=== PATIENT | female | born 1945 | race Two or more races ===

== ENCOUNTER → 2016-09-26 | Outpatient (REF) | payer MEDICAID ==
[~2016-09-26] MED LIST: HYDR25TA6; K-TA10TA; LABE100T2; LABE200T; VICO5TAB
[2016-09-26 13:10] LABS: MEAN CORPUSCULAR HEMOGLOBIN 26.5 pg (27.0-33.0); MEAN CORPUSCULAR HGB CONC 32.2 g/dl (32.0-36.5); MEAN CORPUSCULAR VOLUME 82.4 fl (80.0-96.0); RED CELL DISTRIBUTION WIDTH 13.8 % (11.5-14.5); WHITE BLOOD COUNT 6.5 K/mm3 (4.0-10.0)
== END ==
LOC: M SFHCPLAZ 10:58
PROVIDERS: ATTEND Nurse Practitioner Family
DX: E11.9 Type 2 diabetes mellitus without complications (principal); I10 Essential (primary) hypertension; E03.9 Hypothyroidism, unspecified; E78.5 Hyperlipidemia, unspecified; E55.9 Vitamin D deficiency, unspecified

== ENCOUNTER → 2016-12-24 | Outpatient (REF) | payer MEDICAID ==
[2016-12-24 15:50] LABS: BASO % 0.5 % (0.0-1.0); EOS # 0.2 K/mm3 (0.0-0.50); EOS % 2.9 % (0.0-3.0); LARGE UNSTAINED CELL # 0.1 K/mm3 (0.0-0.4); LARGE UNSTAINED CELL % 1.6 % (0.0-4.0); LYMPH # 1.5 K/mm3 (1.5-4.5); LYMPH % 21.9 % (24.0-44.0); MEAN CORPUSCULAR HEMOGLOBIN 27.2 pg (27.0-33.0); MEAN CORPUSCULAR HGB CONC 33.2 g/dl (32.0-36.5); MEAN CORPUSCULAR VOLUME 81.9 fl (80.0-96.0); MONO # 0.5 K/mm3 (0.0-0.8); MONO % 6.8 % (0.0-5.0); NEUTROPHILS # 4.4 K/mm3 (1.8-7.7); NEUTROPHILS % 66.2 % (36.0-66.0); PLATELET COUNT, AUTOMATED 251 k/mm3 (150-450); RED CELL DISTRIBUTION WIDTH 13.1 % (11.5-14.5); WHITE BLOOD COUNT 6.6 K/mm3 (4.0-10.0)
[2016-12-24 16:03] LABS: ANION GAP 8 MEQ/L (8-16); BLOOD UREA NITROGEN 14 MG/DL (7-18); CALCIUM LEVEL 9.8 MG/DL (8.8-10.2); CARBON DIOXIDE LEVEL 28 MEQ/L (21-32); CHLORIDE LEVEL 100 MEQ/L (98-107); FREE T4 0.95 NG/DL (0.76-1.46); GLOMERULAR FILTRATION RATE > 60.0 (>39); GLUCOSE, FASTING 108 MG/DL (83-110); POTASSIUM SERUM 4.1 MEQ/L (3.5-5.1); SODIUM LEVEL 136 MEQ/L (136-145)
[2016-12-25 14:50] LABS: VITAMIN B12 LEVEL 200 PG/ML (247-911)
[2016-12-25 14:51] LABS: FOLATE 22.1 NG/ML (>5.4)
[2016-12-25 17:14] LABS: FERRITIN 11 NG/ML (8-252); PERCENT SATURATION 9.6 % (13.2-37.4); TOTAL IRON BINDING CAPACITY 427 UG/DL (250-450)
== END ==
LOC: M SFHCPLAZ 13:53
PROVIDERS: ATTEND Nurse Practitioner Family
DX: D64.9 Anemia, unspecified (principal); T73.3XXD Exhaustion due to excessive exertion, subsequent encounter; E03.9 Hypothyroidism, unspecified; E11.9 Type 2 diabetes mellitus without complications

== ENCOUNTER → 2017-04-23 | Outpatient (REF) | payer MEDICAID ==
[2017-04-23 19:03] LABS: BASO % 0.6 % (0.0-1.0); EOS # 0.2 10^3/uL (0.0-0.50); IMMATURE GRANULOCYTE % 0.4 % (0-0); LYMPH # 1.9 10^3/uL (1.5-4.5); LYMPH % 26.7 % (24.0-44.0); MEAN CORPUSCULAR HEMOGLOBIN 27.9 pg (27.0-33.0); MEAN CORPUSCULAR HGB CONC 33.1 g/dl (32.0-36.5); MEAN CORPUSCULAR VOLUME 84.2 fl (80.0-96.0); MONO # 0.6 10^3/uL (0.0-0.8); MONO % 8.8 % (0.0-5.0); NEUTROPHILS # 4.3 10^3/uL (1.8-7.7); NEUTROPHILS % 60.5 % (36.0-66.0); PLATELET COUNT, AUTOMATED 219 10^3/uL (150-450); RED CELL DISTRIBUTION WIDTH 13.1 % (11.5-14.5)
[2017-04-23 19:15] LABS: PERCENT SATURATION 15.2 % (13.2-45.0)
== END ==
LOC: M SFHCPLAZ 15:40
PROVIDERS: ATTEND Nurse Practitioner Family
DX: T73.3XXD Exhaustion due to excessive exertion, subsequent encounter (principal)

== ENCOUNTER → 2017-05-26 | Outpatient (CLI) | payer MEDICAID ==
--- NOTE | 2017-05-26 15:34 | REPMRS ---
Patient History The patient states she has not had a clinical breast exam in over a year. Patient is postmenopausal. No known family history of cancer. Digital Woman Screen Mammo: May 26, 2017 - Exam #: [id number] Bilateral CC and MLO view(s) were taken. Technologist: Lindsey Velazquez, Technologist Prior study comparison: January 05, 2014, digital woman screen mammo performed at [facility] to [facility]. December 11, 2011, digital woman screen mammo performed at [facility] to [facility]. FINDINGS: There are scattered fibroglandular densities. There is a fairly symmetric fibroglandular pattern in both breasts. There has been no interval development of masses, areas of architectural distortion or clusters of microcalcifications typical of malignancy. ASSESSMENT: BI-RADS/ACR category 2 mammogram. Benign finding(s). Recommendation Routine screening mammogram of both breasts in 1 year (for women over age 40). This mammogram was interpreted with the aid of an FDA-approved computer-aided dectection system. Electronically Signed By: Angel Luis Brumfield MD 05/26/17 [id number]
== END ==
LOC: M WHC 13:30
PROVIDERS: ATTEND Nurse Practitioner Adult Health
DX: Z12.31 Encounter for screening mammogram for malignant neoplasm of breast (principal); Z78.0 Asymptomatic menopausal state

== ENCOUNTER → 2017-11-30 | Outpatient (REF) | payer MEDICAID ==
[2017-11-30 13:12] LABS: HEMATOCRIT 34.2 % (36.0-47.0); HEMOGLOBIN 11.4 g/dl (12.0-15.5); MEAN CORPUSCULAR HEMOGLOBIN 27.9 pg (27.0-33.0); MEAN CORPUSCULAR HGB CONC 33.3 g/dl (32.0-36.5); MEAN CORPUSCULAR VOLUME 83.8 fl (80.0-96.0); PLATELET COUNT, AUTOMATED 209 10^3/uL (150-450); RED BLOOD COUNT 4.08 10^6/uL (4.00-5.40); RED CELL DISTRIBUTION WIDTH 12.9 % (11.5-14.5); WHITE BLOOD COUNT 6.4 10^3/uL (4.0-10.0)
[2017-11-30 13:27] LABS: ESTIMATED AVERAGE GLUCOSE 146 MG/DL (60-110); HEMOGLOBIN A1c 6.7 %
[2017-11-30 13:42] LABS: VITAMIN B12 LEVEL 410 PG/ML (247-911)
[2017-11-30 13:48] LABS: ALBUMIN 3.9 GM/DL (3.2-5.2); ALBUMIN/GLOBULIN RATIO 1.34 (1.00-1.93); ALKALINE PHOSPHATASE 58 U/L (45-117); ALT/SGPT 20 U/L (12-78); ANION GAP 10 MEQ/L (8-16); AST/SGOT 17 U/L (7-37); BILIRUBIN,TOTAL 0.5 MG/DL (0.2-1.0); BLOOD UREA NITROGEN 9 MG/DL (7-18); CALCIUM LEVEL 8.7 MG/DL (8.8-10.2); CARBON DIOXIDE LEVEL 29 MEQ/L (21-32); CHLORIDE LEVEL 99 MEQ/L (98-107); CREATININE FOR GFR 0.67 MG/DL (0.55-1.30); FERRITIN 30 NG/ML (8-252); GLOMERULAR FILTRATION RATE > 60.0 (>39); GLUCOSE, FASTING 107 MG/DL (70-100); IRON (FE) 81 UG/DL (50-170); SODIUM LEVEL 138 MEQ/L (136-145); TOTAL PROTEIN 6.8 GM/DL (6.4-8.2)
[2017-11-30 14:21] LABS: CREATININE, URINE 62.7 MG/DL; MALB URINE SIEMENS 29.8 MG/L; MAU/CREAT RATIO 47.5 MCG/MG (0.0-30.0)
== END ==
LOC: M SFHCPLAZ 09:23
DX: E03.9 Hypothyroidism, unspecified (principal); E11.9 Type 2 diabetes mellitus without complications; E53.8 Deficiency of other specified B group vitamins; D50.0 Iron deficiency anemia secondary to blood loss (chronic)
CPT/HCPCS: 83540

== ENCOUNTER → 2018-03-19 | Outpatient (CLI) | payer OTHER ==
[2018-03-19 11:18] LABS: HEMATOCRIT 33.5 % (36.0-47.0); HEMOGLOBIN 11.2 g/dl (12.0-15.5); MEAN CORPUSCULAR HEMOGLOBIN 27.7 pg (27.0-33.0); MEAN CORPUSCULAR HGB CONC 33.4 g/dl (32.0-36.5); MEAN CORPUSCULAR VOLUME 82.9 fl (80.0-96.0); PLATELET COUNT, AUTOMATED 218 10^3/uL (150-450); RED BLOOD COUNT 4.04 10^6/uL (4.00-5.40); WHITE BLOOD COUNT 6.5 10^3/uL (4.0-10.0)
[2018-03-19 11:39] LABS: ESTIMATED AVERAGE GLUCOSE 151 MG/DL (60-110); HEMOGLOBIN A1c 6.9 %
[2018-03-19 13:42] LABS: ALBUMIN 3.7 GM/DL (3.2-5.2); ALBUMIN/GLOBULIN RATIO 1.19 (1.00-1.93); ALKALINE PHOSPHATASE 68 U/L (45-117); ALT/SGPT 14 U/L (12-78); ANION GAP 10 MEQ/L (8-16); AST/SGOT 13 U/L (7-37); BILIRUBIN,TOTAL 0.5 MG/DL (0.2-1.0); BLOOD UREA NITROGEN 11 MG/DL (7-18); CALCIUM LEVEL 8.6 MG/DL (8.8-10.2); CARBON DIOXIDE LEVEL 28 MEQ/L (21-32); CHLORIDE LEVEL 99 MEQ/L (98-107); CREATININE FOR GFR 0.65 MG/DL (0.55-1.30); GLOMERULAR FILTRATION RATE > 60.0 (>39); GLUCOSE, FASTING 115 MG/DL (70-100); POTASSIUM SERUM 4.2 MEQ/L (3.5-5.1); SODIUM LEVEL 137 MEQ/L (136-145); TOTAL PROTEIN 6.8 GM/DL (6.4-8.2)
== END ==
LOC: M LAB 10:27
DX: E11.9 Type 2 diabetes mellitus without complications (principal); D50.0 Iron deficiency anemia secondary to blood loss (chronic); E53.8 Deficiency of other specified B group vitamins; E03.9 Hypothyroidism, unspecified
CPT/HCPCS: 84443

== ENCOUNTER → 2018-10-04 | Outpatient (REF) | payer OTHER ==
[2018-10-04 12:59] LABS: HEMATOCRIT 34.6 % (36.0-47.0); HEMOGLOBIN 10.9 g/dl (12.0-15.5); MEAN CORPUSCULAR HEMOGLOBIN 26.8 pg (27.0-33.0); MEAN CORPUSCULAR HGB CONC 31.5 g/dl (32.0-36.5); PLATELET COUNT, AUTOMATED 218 10^3/uL (150-450); RED BLOOD COUNT 4.07 10^6/uL (4.00-5.40); WHITE BLOOD COUNT 6.7 10^3/uL (4.0-10.0)
[2018-10-04 13:19] LABS: ALBUMIN 3.8 GM/DL (3.2-5.2); ALT/SGPT 16 U/L (12-78); BILIRUBIN,TOTAL 0.5 MG/DL (0.2-1.0); BLOOD UREA NITROGEN 10 MG/DL (7-18); CALCIUM LEVEL 8.9 MG/DL (8.8-10.2); CARBON DIOXIDE LEVEL 29 MEQ/L (21-32); CHLORIDE LEVEL 103 MEQ/L (98-107); CHOLESTEROL LEVEL 137 MG/DL (<200); CREATININE FOR GFR 0.64 MG/DL (0.55-1.30); GLOMERULAR FILTRATION RATE > 60.0 (>39); GLUCOSE, FASTING 114 MG/DL (70-100); HDL CHOLESTEROL 50 MG/DL (>40); LDL CHOLESTEROL 64 MG/DL (<100); NON-HDL-C 87 MG/DL; POTASSIUM SERUM 4.2 MEQ/L (3.5-5.1); SODIUM LEVEL 138 MEQ/L (136-145); TRIGLYCERIDES LEVEL 116 MG/DL (<150); VITAMIN B12 LEVEL 287 PG/ML (247-911)
[2018-10-04 13:34] LABS: CREATININE, URINE 56.1 MG/DL; MALB URINE SIEMENS 71.9 MG/L; MAU/CREAT RATIO 128.1 MCG/MG (0.0-30.0)
[2018-10-04 13:36] LABS: HEMOGLOBIN A1c 7.2 %
== END ==
LOC: M SFHCPLAZ 09:11
PROVIDERS: ATTEND Nurse Practitioner Adult Health
DX: E11.9 Type 2 diabetes mellitus without complications (principal); I10 Essential (primary) hypertension; E53.8 Deficiency of other specified B group vitamins; D50.0 Iron deficiency anemia secondary to blood loss (chronic)

== ENCOUNTER → 2019-04-04 | Outpatient (REF) | payer OTHER ==
[2019-04-04 16:09] LABS: HEMATOCRIT 32.6 % (36.0-47.0); HEMOGLOBIN 10.5 g/dl (12.0-15.5); MEAN CORPUSCULAR HEMOGLOBIN 27.6 pg (27.0-33.0); MEAN CORPUSCULAR HGB CONC 32.2 g/dl (32.0-36.5); MEAN CORPUSCULAR VOLUME 85.6 fl (80.0-96.0); PLATELET COUNT, AUTOMATED 238 10^3/uL (150-450); RED BLOOD COUNT 3.81 10^6/uL (4.00-5.40); WHITE BLOOD COUNT 6.5 10^3/uL (4.0-10.0)
[2019-04-04 16:16] LABS: ALBUMIN 3.8 GM/DL (3.2-5.2); ALT/SGPT 16 U/L (12-78); BILIRUBIN,TOTAL 0.4 MG/DL (0.2-1.0); BLOOD UREA NITROGEN 15 MG/DL (7-18); CALCIUM LEVEL 9.2 MG/DL (8.8-10.2); CARBON DIOXIDE LEVEL 29 MEQ/L (21-32); CHLORIDE LEVEL 96 MEQ/L (98-107); CHOLESTEROL LEVEL 131 MG/DL (<200); CHOLESTEROL RISK RATIO 2.568 (<5); CREATININE FOR GFR 0.85 MG/DL (0.55-1.30); FERRITIN 16 NG/ML (8-252); GLOMERULAR FILTRATION RATE > 60.0 (>39); GLUCOSE, FASTING 113 MG/DL (70-100); HDL CHOLESTEROL 51 MG/DL (>40); IRON (FE) 51 UG/DL (50-170); LDL CHOLESTEROL 40 MG/DL (<100); NON-HDL-C 80 MG/DL; PERCENT SATURATION 13.1 % (13.2-45.0); POTASSIUM SERUM 4.3 MEQ/L (3.5-5.1); SODIUM LEVEL 135 MEQ/L (136-145); TOTAL IRON BINDING CAPACITY 390 UG/DL (250-450); TOTAL PROTEIN 6.5 GM/DL (6.4-8.2); TRIGLYCERIDES LEVEL 202 MG/DL (<150)
[2019-04-04 16:17] LABS: TOTAL 25(OH) VITAMIN D 21.1 NG/ML (30.0-100.0)
[2019-04-04 16:27] LABS: HEMOGLOBIN A1c 6.8 %
[2019-04-04 16:44] LABS: MALB URINE SIEMENS 19.5 MG/L; MAU/CREAT RATIO 13.9 MCG/MG (0.0-30.0)
== END ==
LOC: M SFHCPLAZ 13:37
PROVIDERS: ATTEND Nurse Practitioner Adult Health
DX: D50.0 Iron deficiency anemia secondary to blood loss (chronic) (principal); I10 Essential (primary) hypertension; E11.9 Type 2 diabetes mellitus without complications; E03.9 Hypothyroidism, unspecified; E78.2 Mixed hyperlipidemia

== ENCOUNTER 2019-11-13 11:45 | Emergency (ER) | payer OTHER ==
[~2019-11-13] VITALS: Ht 167.6 cm; Wt 64.3 kg
[~2019-11-13 11:45] MED LIST changes: -LABE200T; +LABE200T PO
[2019-11-13] MEDS ORDERED: LISI10TA4 PO (11:57)
[2019-11-13] MEDS ORDERED: SYNT25TA PO (11:57)
[2019-11-13] MEDS ORDERED: CHLO125TA PO (11:57)
[2019-11-13] MEDS ORDERED: METF10004 PO (11:57)
[2019-11-13] MEDS ORDERED: ASPI81CH33 PO (11:57)
[2019-11-13] MEDS ORDERED: SIMV10TA21 PO (11:57)
[2019-11-13] MEDS ORDERED: IRON27TA2 PO (11:57)
[2019-11-13] MEDS ORDERED: MORPHINE 2 MG/ML 1ML VIAL (J2270) IV ONE (12:30)
[2019-11-13 12:46] LABS: BASO % 0.6 % (0.0-1.0); EOS # 0.4 10^3/uL (0.0-0.5); EOS % 6.5 % (0.0-3.0); HEMATOCRIT 33.1 % (36.0-47.0); HEMOGLOBIN 10.8 g/dl (12.0-15.5); LYMPH # 1.1 10^3/uL (1.5-5.0); LYMPH % 17.2 % (24.0-44.0); MEAN CORPUSCULAR HEMOGLOBIN 28.2 pg (27.0-33.0); MEAN CORPUSCULAR HGB CONC 32.6 g/dl (32.0-36.5); MEAN CORPUSCULAR VOLUME 86.4 fl (80.0-96.0); MONO # 0.5 10^3/uL (0.0-0.8); MONO % 7.3 % (0.0-5.0); NEUTROPHILS # 4.5 10^3/uL (1.5-8.5); NEUTROPHILS % 68.1 % (36.0-66.0); PLATELET COUNT, AUTOMATED 214 10^3/uL (150-450); RED BLOOD COUNT 3.83 10^6/uL (4.00-5.40); WHITE BLOOD COUNT 6.6 10^3/uL (4.0-10.0)
[2019-11-13 12:57] LABS: INR 1.16; PROTHROMBIN TIME 14.5 SECONDS (11.8-14.0)
[2019-11-13 12:58] LABS: PARTIAL THROMBOPLASTIN TIME 36.6 SECONDS (25.0-38.4)
[2019-11-13 13:11] LABS: BLOOD UREA NITROGEN 14 MG/DL (7-18); CARBON DIOXIDE LEVEL 27 MEQ/L (21-32); CHLORIDE LEVEL 97 MEQ/L (98-107); CK-MB VALUE MASS 1.4 NG/ML (<3.6); CPK CREATINE PHOSPHOKINASE 101 U/L (26-192); GLOMERULAR FILTRATION RATE > 60.0 (>39); GLUCOSE, FASTING 113 MG/DL (70-100); MB/CK RELATIVE INDEX 1.39 (< OR =4); POTASSIUM SERUM 3.9 MEQ/L (3.5-5.1); SODIUM LEVEL 133 MEQ/L (136-145); TROPONIN I < 0.02 NG/ML (< 0.10)
[2019-11-13 13:31] VITALS: BP 213/95
--- NOTE | 2019-11-14 11:45 | REP ---
"Test" dictation only -- no report dictated. Incomplete
--- NOTE | 2019-11-14 18:22 | ECGEPIP ---
[facility] - ED Test Date: 2019-11-13 Pat Name: ANGELA LLOYD Department: Room: - Gender: Female Financial Planning Advisor: : 1945 Requested By: WILLY Phillips Order Number: [id number] Reading MD: Crissy Cullen Measurements Intervals [place] Rate: 58 P: 14 WV: 181 QRS: -28 QRSD: 144 T: 77 QT: 460 QTc: 453 Interpretive Statements SINUS BRADYCARDIA LEFT BUNDLE BRANCH BLOCK NO PRIOR Electronically Signed on 11-14-2019 18:22:23 EDT by Crissy Cullen
--- NOTE | 2019-11-15 01:44 | REP ---
CT CERVICAL SPINE, 11/13/2019: INDICATION: (cut off). TECHNIQUE: Unenhanced CT images of the cervical spine were obtained with coronal and sagittal reconstructions provided. COMPARISON: None. FINDINGS: There is no evidence of acute fracture, subluxation, or dislocation. There is mild straightening of the cervical lordotic curve. Multilevel degenerative sequelae are present, most pronounced at C3-C4 and C5-C6. There is minimal anterolisthesis of C6 on C7. There is no evidence of hemorrhage within the spinal canal. IMPRESSION: No acute osseous injury of the cervical spine. MTDD
== END 2019-11-13 14:12 | disposition home or self-care (01) ==
LOC: M ED 11:45
DX: S01.01XA Laceration without foreign body of scalp, initial encounter (principal); W01.190A Fall on same level from slipping, tripping and stumbling with subsequent striking against furniture, initial encounter; Y92.098 Other place in other non-institutional residence as the place of occurrence of the external cause; R00.1 Bradycardia, unspecified; I44.7 Left bundle-branch block, unspecified; I10 Essential (primary) hypertension; E07.9 Disorder of thyroid, unspecified; E11.9 Type 2 diabetes mellitus without complications; Z88.0 Allergy status to penicillin; Z79.899 Other long term (current) drug therapy; Z79.82 Long term (current) use of aspirin; Z79.84 Long term (current) use of oral hypoglycemic drugs
CPT/HCPCS: 12001; 36415; 70450; 72125; 80048; 82550; 82553; 85025; 85610; 85730; 93005; 93041; 94760; 96374; 99285; J2270

== ENCOUNTER → 2019-11-21 | Outpatient (REF) | payer OTHER ==
[~2019-11-21] MED LIST changes: +ASPI81CH33 PO; +CHLO125TA PO; +IRON27TA2 PO; +LISI10TA4 PO; +METF10004 PO; +SIMV10TA21 PO; +SYNT25TA PO
[2019-11-21 16:39] LABS: BLOOD UREA NITROGEN 15 MG/DL (7-18); CALCIUM LEVEL 9.7 MG/DL (8.8-10.2); CARBON DIOXIDE LEVEL 31 MEQ/L (21-32); CHLORIDE LEVEL 95 MEQ/L (98-107); CREATININE FOR GFR 0.87 MG/DL (0.55-1.30); FERRITIN 40 NG/ML (8-252); FREE T4 0.99 NG/DL (0.76-1.46); GLOMERULAR FILTRATION RATE > 60.0 (>39); GLUCOSE, FASTING 101 MG/DL (70-100); IRON (FE) 61 UG/DL (50-170); PERCENT SATURATION 17.1 % (13.2-45.0); POTASSIUM SERUM 4.5 MEQ/L (3.5-5.1); SODIUM LEVEL 132 MEQ/L (136-145); TOTAL IRON BINDING CAPACITY 357 UG/DL (250-450)
== END ==
LOC: M SFHCPLAZ 13:45
PROVIDERS: ATTEND Family Medicine
DX: L65.9 Nonscarring hair loss, unspecified (principal); E87.1 Hypo-osmolality and hyponatremia

== ENCOUNTER → 2020-04-23 | Outpatient (REF) | payer OTHER ==
[2020-04-23 18:10] LABS: HEMOGLOBIN 10.7 g/dl (12.0-15.5); MEAN CORPUSCULAR HEMOGLOBIN 27.3 pg (27.0-33.0); MEAN CORPUSCULAR HGB CONC 31.5 g/dl (32.0-36.5); MEAN CORPUSCULAR VOLUME 86.7 fl (80.0-96.0); PLATELET COUNT, AUTOMATED 235 10^3/uL (150-450); RED BLOOD COUNT 3.92 10^6/uL (4.00-5.40); WHITE BLOOD COUNT 6.1 10^3/uL (4.0-10.0)
[2020-04-23 18:32] LABS: HEMOGLOBIN A1c 5.9 %
[2020-04-23 18:44] LABS: ALBUMIN 4.1 GM/DL (3.2-5.2); ALT/SGPT 9 U/L (12-78); BILIRUBIN,TOTAL 0.3 MG/DL (0.2-1.0); BLOOD UREA NITROGEN 14 MG/DL (7-18); CALCIUM LEVEL 9.3 MG/DL (8.8-10.2); CARBON DIOXIDE LEVEL 27 MEQ/L (21-32); CHLORIDE LEVEL 97 MEQ/L (98-107); CHOLESTEROL LEVEL 139 MG/DL (<200); CHOLESTEROL RISK RATIO 2.355 (<5); CREATININE FOR GFR 0.95 MG/DL (0.55-1.30); FERRITIN 30 NG/ML (8-252); FREE T4 0.96 NG/DL (0.76-1.46); GLOMERULAR FILTRATION RATE > 60.0 (>39); GLUCOSE, FASTING 127 MG/DL (70-100); HDL CHOLESTEROL 59 MG/DL (>40); IRON (FE) 69 UG/DL (50-170); LDL CHOLESTEROL 45 MG/DL (<100); NON-HDL-C 80 MG/DL; POTASSIUM SERUM 4.3 MEQ/L (3.5-5.1); SODIUM LEVEL 133 MEQ/L (136-145); TOTAL 25(OH) VITAMIN D 30.4 NG/ML (30.0-100.0); TOTAL PROTEIN 6.7 GM/DL (6.4-8.2); TRIGLYCERIDES LEVEL 176 MG/DL (<150)
[2020-04-23 18:48] LABS: MALB URINE SIEMENS 79.4 MG/L; MAU/CREAT RATIO 38.7 MCG/MG (0.0-30.0)
== END ==
LOC: M SFHCPLAZ 14:37
PROVIDERS: ATTEND Nurse Practitioner Adult Health
DX: D50.0 Iron deficiency anemia secondary to blood loss (chronic) (principal); I10 Essential (primary) hypertension; L65.9 Nonscarring hair loss, unspecified; E11.9 Type 2 diabetes mellitus without complications; E78.2 Mixed hyperlipidemia; E55.9 Vitamin D deficiency, unspecified

== ENCOUNTER 2020-06-21 13:12 | Observation (INO) | payer OTHER ==
[~2020-06-21] VITALS: Ht 152.4 cm; Wt 63.0 kg
[~2020-06-21 13:12] MED LIST changes: +LISI10TA22 PO; -LISI10TA4 PO
[2020-06-21 13:46] LABS: BASO % 0.3 % (0.0-1.0); EOS # 0.4 10^3/uL (0.0-0.5); EOS % 5.8 % (0.0-3.0); HEMOGLOBIN 10.4 g/dl (12.0-15.5); LYMPH # 1.2 10^3/uL (1.5-5.0); LYMPH % 17.2 % (24.0-44.0); MEAN CORPUSCULAR HEMOGLOBIN 27.4 pg (27.0-33.0); MEAN CORPUSCULAR HGB CONC 31.5 g/dl (32.0-36.5); MEAN CORPUSCULAR VOLUME 86.8 fl (80.0-96.0); MONO # 0.6 10^3/uL (0.0-0.8); MONO % 8.5 % (0.0-5.0); NEUTROPHILS # 4.5 10^3/uL (1.5-8.5); NEUTROPHILS % 67.9 % (36.0-66.0); PLATELET COUNT, AUTOMATED 221 10^3/uL (150-450); WHITE BLOOD COUNT 6.7 10^3/uL (4.0-10.0)
--- NOTE | 2020-06-21 13:53 | REPVR ---
PROCEDURE INFORMATION: Exam: CT Head Without Contrast Exam date and time: 06/21/2020 1:26 PM Age: 74 years old Clinical indication: Altered mental status/memory loss TECHNIQUE: Imaging protocol: Computed tomography of the head without contrast. Radiation optimization: All CT scans at this facility use at least one of these dose optimization techniques: automated exposure control; mA and/or kV adjustment per patient size (includes targeted exams where dose is matched to clinical indication); or iterative reconstruction. COMPARISON: CT Head without contrast 11/13/2019 12:46 PM FINDINGS: Brain: Prominent deep white matter hypodensity is again demonstrated probably reflecting chronic small vessel ischemic change. No evolving transcortical infarct or intracranial hemorrhage seen. Prominent calcified atherosclerosis of the carotid siphons. Cerebral ventricles: The ventricles are moderately enlarged in keeping with volume loss, in particular central volume loss. Bones/joints: No acute fracture seen. Paranasal sinuses: Visualized sinuses are unremarkable. No fluid levels. Mastoid air cells: Visualized mastoid air cells are well aerated. Soft tissues: Frontal scalp soft tissue ossification/calcification again demonstrated. IMPRESSION: No acute intracranial abnormality seen. Electronically signed by: Lindsey Deleon On 06/21/2020 13:53:23 PM
[2020-06-21] MEDS ORDERED: D31000TA2 PO (14:18)
[2020-06-21] MEDS ORDERED: LABE20TAB PO (14:18)
[2020-06-21] MEDS ORDERED: ASPI-161 PO (14:18)
[2020-06-21 14:30] LABS: ALBUMIN 3.8 GM/DL (3.2-5.2); ALT/SGPT 15 U/L (12-78); BILIRUBIN,DIRECT < 0.1 MG/DL (0.0-0.2); BILIRUBIN,TOTAL 0.3 MG/DL (0.2-1.0); BLOOD UREA NITROGEN 18 MG/DL (7-18); CALCIUM LEVEL 9.2 MG/DL (8.8-10.2); CARBON DIOXIDE LEVEL 30 MEQ/L (21-32); CHLORIDE LEVEL 97 MEQ/L (98-107); CK-MB VALUE MASS 1.6 NG/ML (<3.6); CPK CREATINE PHOSPHOKINASE 69 U/L (26-192); CREATININE FOR GFR 0.74 MG/DL (0.55-1.30); GLOMERULAR FILTRATION RATE > 60.0 (>39); GLUCOSE, FASTING 128 MG/DL (70-100); MB/CK RELATIVE INDEX 2.32 (< OR =4); SODIUM LEVEL 134 MEQ/L (136-145); TOTAL PROTEIN 6.4 GM/DL (6.4-8.2); TROPONIN I < 0.02 NG/ML (< 0.10)
[2020-06-21 14:48] LABS: OSMOLALITY SERUM 283 MOSM/KG (280-301)
--- OUTSIDE RECORDS SUMMARY | 2020-06-21 16:11 | CCD | Continuity of Care Document ---
Author Author Aníbal Ramirez Automated Organization Unknown Address Unknown Phone Unavailable Care Team Providers Care Chemist Assistant Name Role Phone Luis A Tariq Unavailable Unavailable Unavailable Luis A Tariq Unavailable Unavailable Unavailable Purnima Garridosa Unavailable DanetteGeraldo palmerine Unavailable Todd Resendiz Unavailable Problems Name Dates Details Type 2 diabetes joy litus without complications (E11.9) 24-Apr-2020 Status: Active Medications Name Dates Details Aspirin Adult Low Dose 81 MG Luis A Tariq Active Vitamin B12 1000 MCG 2000mcg Luis A Tariq* Start : 27-Apr-2020 Active Ferrous Sulfate 325 (65 Fe) MG Luis A Tariq* Start : 27-Apr-2020 Active Vitamin D 2000 UNIT Luis A Tariq* Start : 27-Apr-2020 Active Chlorthalidone 25 MG Luis A Tariq* Start : 27-Apr-2020 Active Lisinopril 10 MG Luis A Tariq* Start : 27-Apr-2020 Active Synthroid 25 MCG Luis A Tariq* Start : 27-Apr-2020 Active Simvastatin 10 MG Luis A Tariq* Start : 27-Apr-2020 Active MetFORMIN HCl 1000 MG Luis A Tariq* Start : 27-Apr-2020 Active Labetalol HCl 200 MG Luis A Tariq* Start : 27-Apr-2020 Active Colace 100 MG daily as needed for constipation Luis A Tariq* Start : 27-Apr-2020 Active Allergies and Adverse Reactions Name Dates Details Darvocet (Allergy) Onset: 27-Apr-2020 Status: Active Results Date Description Value Details No Known Results Plan of Care Name Dates Details Instructions Diet:Regular Diet, Diabetic Di et Ins truction Type: Nutrition education Payers * [facility] Community Plan * [facility]
--- OUTSIDE RECORDS SUMMARY | 2020-06-21 16:11 | CCD | Continuity of Care Document ---
Author Author Aníbal Ramirez Automated Organization Unknown Address Unknown Phone Unavailable Care Team Providers Care Antisqueak Chalker Name Role Phone Luis A Tariq Unavailable Unavailable Unavailable Luis A Tariq Unavailable Unavailable Unavailable Purnima Garridosa Unavailable DanetteNay palmer Unavailable Todd Resendiz Unavailable Problems Name Dates Details Type 2 diabetes joy litus without complications (E11.9) 24-Apr-2020 Status: Active History of falling (Z91.81) 27-Apr-2020 Status: Active penitentiary (current) use of oral hypoglycemic drugs (Z79.84) 27-Apr-2020 Status: Active Vitamin D deficienc y, unspecified (E55.9) 27-Apr-2020 Status: Active Deficiency of other specified B group vitamins (E53.8) 27-Apr-2020 Status: Active Hypothyroidism, uns pecified (E03.9) 27-Apr-2020 Status: Active Iron deficiency ane carlie, unspecified (D50.9) 27-Apr-2020 Status: Active Bilateral primary o steoarthritis of knee (M17.0) 27-Apr-2020 Status: Active Essential (primary) hypertension (I10) 27-Apr-2020 Status: Active Medications Name Dates Details Aspirin Adult Low Dose 81 MG Luis A Tariq Active Vitamin B12 1000 MCG 2000mcg Luis A Tariq* Start : 27-Apr-2020 Active Ferrous Sulfate 325 (65 Fe) MG uLis A Tariq* Start : 27-Apr-2020 Active Vitamin [...] Allergies and Adverse Reactions Name Dates Details Antwon (Allergy) Onset: 27-Apr-2020 Status: Active Results Date Description Value Details No Known Results Plan of Care Name Dates Details Instructions Diet:Regular Diet, Diabetic Di et Ins truction Type: Nutrition education Payers * [facility] Plan * [facility]
--- OUTSIDE RECORDS SUMMARY | 2020-06-21 16:11 | CCD ---
Author Author [facility] Organization [facility] Address Unknown Phone Unavailable Care Team Providers Care Deputy Harbormaster Name Role Phone Juanykarin Zhanna Unavailable PROBLEMS Type Condition ICD9-CM Code [id number] Code Onset Dates Condition S tatus SNOMED Code Notes Problem Diabetes mellitus E11.9 Active 03480462 Problem Lumbago M54.5 Active 115085141 Problem Iron deficiency anemia due to chronic blood loss D 50.0 Active 27621727 Problem Hyperlipidemia E78.5 Active 57366188 Problem Vitamin D deficiency E55.9 Active 71726912 Problem Essential hypertension I10 Active 38307932 Problem Degenerative disc disease, lumbar M51.36 Active 54695792 Problem Hypothyroid E03.9 Active 49522298 Problem Mixed hyperlipidemia E78.2 Active 617777883 Problem Tubular adenoma of colon D12.6 Active 1577815 06 Problem Arthritis pain M19.90 Active 40595926 Problem Vitamin B 12 deficiency E53.8 Active 60185498 4 ALLERGIES Allergen (clinical drug ingredient) Drug/Non Drug Allergy do cumented on EMR Reaction Allergy Type Onset Date Status Darvocet-N 100 Nausea/Vomiting Drug Allergy Act [place] Penicillin (For Allergies Use Only) Unknown Drug Allerg y Active ENCOUNTERS from 1945 to 2020-04-26 Encounter Location Date Provider Diagnosis [address] [address] Apr, Zhanna Dumont Diabetes mellitus E11.9 ; Essential hype rtension I10 ; Hypothyroid E03.9 ; Mixed hyperlipidemia E78.2 ; Vitamin B 12 deficiency E53.8 ; Iron deficiency anemia due to chronic blood loss D50.0 ; Arthritis pain M19.90 ; Tubular adenoma of colon D12.6 ; Weight loss R63.4 ; Vitamin D deficiency E55.9 ; Hair thinning L65.9 ; Scalp lump R22.0 and Physical deconditioning R53.81 IMMUNIZATIONS Vaccine Route Administration Date Status Influenza (18 yrs & older) Flublok IM Intramuscular Mar 11, 2018 Administered Influenza (High Dose 65 & up) Unknown October 01, 2016 Ot hers Pneumococcal 0.5mL (Prevnar 13) IM Intramuscular October 05, 2014 Administered SOCIAL HISTORY Tobacco Use: Social History Observation Description Date Details (start date - stop date) Never Smoker Sex Assigned At : Social History Observation Description Sex Assigned At Unknown Audit Question Answer Notes Total Score: 0 Interpretation: Alcohol Education Sexual Hx: Question Answer Notes Had sex in the last 12 months (vaginal, oral, or anal)? No Have you ever had an STD? No Drug and Alcohol Question Answer Notes Total Score: 0 Interpretation: No problems reported Alcohol Screening: Question Answer Notes Did you have a drink containing alcohol in the past year? No Points 0 Interpretation Negative BMI Care Goal Follow-Up Question Answer Notes Above Normal BMI Follow-Up Lifestyle education regarding t Tobacco Use: Question Answer Notes Are you a: never smoker REASON FOR REFERRAL No Information VITAL SIGNS Weight 137 lbs Apr, Height 65 in Apr, BMI 22.80 kg/m2 Apr, Heart Rate 86 /min Apr, Respiratory Rate 18 /min Apr, Temperature 97.8 degrees Fahrenheit Apr, Oximetry 98% Apr, Blood pressure systolic 124 mm Hg Apr, Blood pressure diastolic 80 mm Hg Apr, MEDICATIONS Medication SIG (Take, Route, Frequency, Duration) Notes Start Da te End Date Status Synthroid 25 MCG TAKE 1 TABLET BY MOUTH EVERY MORNING ON AN EMPTY STOMACH for 30 Active Vitamin D 2000 UNIT 1 tablet Orally Once a day for 30 days Jan, Active Chlorthalidone 25 MG TAKE ONE TABLET BY MOUTH EVERY MORNING for 90 Active Lisinopril 10 MG 1 tablet Orally Once a day for 30 Active Labetalol HCl 200 MG 1 tablet Orally Twice a day for 30 Active RA Vitamin B12 2000 MCG 1 tablet Orally Once a day for 30 day(s) Dec, Active May Have - rolling seated walker M19.90 as directed for 90 day(s) Apr, Active Clobetasol Propionate 0.05 % 1 application topically T wice a day to itchy areas on scalp for 10 day(s) Mar, Active Potassium Chloride 10 MEQ 1 tab(s) orally daily for 30 days Not-Taking Simvastatin 10 MG 1 tab orally in the evening for 30 Active Ferrous Sulfate 325 (65 Fe) MG 1 tablet Orally Once a day for 30 days Dec, Active Metformin HCl 1000 MG 1 tablet with meals Orally Twice a day for 30 Active May Have - as directed rolling seated walker M51.36 148.4 lbs, 65" for 365 days Jul, Active Aspirin 81 MG as directed Orally daily Active PROCEDURES No Information RESULTS REASON FOR VISIT follow-up MEDICAL (GENERAL) HISTORY Type Description Date Medical History DM Medical History hypothyroidism TSH WNL 12/13/13 Medical History HTN Medical History Hyperlipidemia LDL 54 12/13/13 Medical History mammo neg 01/05/14- order given 03/11/18 Medical History DEXA 01/05/14 Medical History Tubular Adenoma of Colon Medical History Vitamin B12 Deficiency Surgical History colonoscopy, sessile polyp m id sigmoid colon 5 mm. Tubular adenoma 3 to five-year follow-up -Dr Frances. - 2008 Surgical History Recall for colo- Pt REFUSES repeat,refuses 09/2018 refuses 04/2020 Goals Section No Information Health Concerns No Information MEDICAL EQUIPMENT No Information MENTAL STATUS No Information FUNCTIONAL STATUS No Information ASSESSMENTS Encounter Date Diagnosis Assessment Notes Treatment Notes Treatm ent Clinical Notes Apr, Diabetes mellitus (ICD-10 - E11.9) continues to take metformin 1000 mg po bid, denies diarrhea, diabetic control with patient-centered goals discussed with pt. Goal Hg bA1c 7-8 is appropriate for this pt. last one was 6.9, today excellant at 5.9 Apr, Essential hypertension (ICD-10 - I10) continues with labetalol, chlorthiadone and lisinopril, Per JNC 8 guidelines, goal BP < 140/90 (150/90 if age >60), is meeting goal on current regimen. Advised heart-healthy diet, sodium restriction Apr, Hypothyroid (ICD-10 - E03.9) continues with synthroid replacement Apr, Mixed hyperlipidemia (ICD-10 - E78.2) remains on simvastatin 10 mg po q day denies muscle pain, 10 year risk of CBD is 30.9%, recommend high intensity, Apr, Vitamin B 12 deficiency (ICD-10 - E53.8) contniue to take replacement per daughter Apr, Iron deficiency anemia due to chronic bl ood loss (ICD-10 - D50.0) recent cbc acceptable rechecking labs today Apr, Arthritis pain (ICD-10 - M19.90) tolerable today, states deals with it Apr, Tubular adenoma of colon (ICD-10 - D12.6) Colonoscopy 03/02/2009, indicated 15 mm polyp in the sigmoid colon resected and retrieved, tubular adenoma, 3-5 year follow-up suggested, per prior notes in the chart patient refused follow-up colonoscopy Discussed with pt and daughter,again today does not want follow up Apr, Weight loss (ICD-10 - R63.4) 137 lns today discussed with pt and daughter will continue to monitor, daughter tried ensure pt did not like it even with fruit, Apr, Vitamin D deficiency (ICD-10 - E55.9) will check vitamin d level Apr, Hair thinning (ICD-10 - L65.9) Has been ongoing for over 6 months, prior investigations by Dr. Hodges reviewed negative ? stress Apr, Scalp lump (ICD-10 - R22.0) will refer to surgery for evaluation. Apr, Physical deconditioning (ICD-10 - R53.81) will order physical therapy in the home, pt house bound. daughtre in agreement to plan. PLAN OF TREATMENT Treatment Notes Assessment Notes Clinical Notes Diabetes mellitus continues to take me tformin 1000 mg po bid, denies diarrhea, diabetic control with patient-centered goals discussed with pt. Goal Hg bA1c 7-8 is appropriate for this pt.last one was 6.9, today excellant at 5.9 Physical deconditioning will order physi maximo therapy in the home, pt house bound.daughtre in agreement to plan. Essential hypertension continues with la betalol, chlorthiadone and lisinopril, Per JNC 8 guidelines, goal BP < 140/90 (150/90 if age >60), is meeting goal on current regimen. Advised heart-healthy diet, sodium restriction Hypothyroid continues with synth roid replacement Mixed hyperlipidemia remains on simvasta tin 10 mg po q day denies muscle pain, 10 year risk of CBD is 30.9%, recommend high intensity, Vitamin B 12 deficiency contniue to take replacement per daughter Iron deficiency anemia due to chronic blood loss recent cbc acceptable rechecking labs today Arthritis pain tolerable today, sta nanci deals with it Scalp lump will refer to surger y for evaluation. Hair thinning Has been ongoing for over 6 months, prior investigations by Dr. Hodges reviewed negative ? stress Tubular adenoma of colon Colonoscopy , indicated 15 mm polyp in the sigmoid colon resected and retrieved, tubular adenoma, 3-5 year follow-up suggested, per prior notes in the chart patient refused follow-up colonosco pyDiscussed with pt and daughter,again today does not want follow up Weight loss 137 lns today discus sed with pt and daughter will continue to monitor, daughter tried ensure pt did not like it even with fruit, Vitamin D deficiency will check vitamin d level Next Appt Details September medicare wellness Reason: Provider Name:Zhanna Dumont, 01:30:00 PM, [address] [place], [address], Insurance Providers Payer Name Payer Address Payer Phone Insured Name Patient Relati onship to Insured Coverage Start Date Coverage End Date [facility] [address] [facility] [id number] [phone] ANGELA LLOYD self
--- OUTSIDE RECORDS SUMMARY | 2020-06-21 16:11 | CCD | Continuity of Care Document ---
Author Author Aníbal Ramirez Automated Organization Unknown Address Unknown Phone Unavailable Care Team Providers Care Board Liner Operator Name Role Phone Luis A Tariq Unavailable [...] Ins truction Type: Nutrition education Payers * [facility] Community Plan * [facility]
--- OUTSIDE RECORDS SUMMARY | 2020-06-21 16:11 | CCD ---
Author Author [facility] Organization [facility] Address Unknown Phone Unavailable Care Team Providers Care Beef Cattle Farmer Name Role Phone Zahnna Dumont Unavailable PROBLEMS Type Condition ICD9-CM Code [id number] Code Onset Dates Condition S tatus SNOMED Code Notes Problem Diabetes mellitus E11.9 Active 04836490 Problem Lumbago M54.5 Active 828985325 Problem Iron deficiency anemia due to chronic blood loss D 50.0 Active 76628892 Problem Hyperlipidemia E78.5 Active 17330453 Problem Vitamin D deficiency E55.9 Active 22186908 Problem Essential hypertension I10 Active 87822825 Problem Degenerative disc disease, lumbar M51.36 Active 77489641 Problem Hypothyroid E03.9 Active 64110120 Problem Mixed hyperlipidemia E78.2 Active 622142374 Problem Tubular adenoma of colon D12.6 Active 4620306 06 Problem Arthritis pain M19.90 Active 27214681 Problem Vitamin B 12 deficiency E53.8 Active 02589815 4 ALLERGIES Allergen (clinical drug ingredient) Drug/Non Drug Allergy do cumented on EMR Reaction Allergy Type Onset Date Status Darvocet-N 100 Nausea/Vomiting Drug Allergy Act [place] Penicillin (For Allergies Use Only) Unknown Drug Allerg y Active ENCOUNTERS from 1945 to 2020-05-01 Encounter Location Date Provider Diagnosis [facility] [address] [place] [id number] Apr, Zhanna Dumont IMMUNIZATIONS Vaccine Route Administration Date Status Influenza [...] REASON FOR REFERRAL No Information VITAL SIGNS No information MEDICATIONS Medication SIG (Take, Route, Frequency, Duration) [...] Orally daily Active PROCEDURES No Information RESULTS No Results REASON FOR VISIT PT verbal orders MEDICAL (GENERAL) HISTORY Type Description Date Medical [...] No Information FUNCTIONAL STATUS No Information ASSESSMENTS No Information PLAN OF TREATMENT Next Appt Details Provider Name:Zhanna Piedra Tim, 01:30:00 PM, [address] [place], [address], Insurance Providers Payer Name Payer Address Payer Phone Insured Name Patient Relati onship to Insured Coverage Start Date Coverage End Date [facility] [address] [facility] [phone] ANGELA LLOYD self
--- OUTSIDE RECORDS SUMMARY | 2020-06-21 16:11 | CCD | Continuity of Care Document ---
Author Author Aníbal Ramirez Automated Organization Unknown Address Unknown Phone Unavailable Care Team Providers Care Laborer Landscape Name Role Phone Luis A Tariq Unavailable Unavailable Unavailable Luis A Tariq Unavailable Unavailable Unavailable Purnima Garridosa Unavailable DanetteNay palmer Unavailable Todd Resendiz Unavailable Problems Name Dates Details Type 2 diabetes joy litus without complications (E11.9) 24-Apr-2020 Status: Active History of falling (Z91.81) 27-Apr-2020 Status: Active [facility]DC (current) use of oral hypoglycemic drugs (Z79.84) [...] Ins truction Type: Nutrition education Payers * [facility] Plan * [facility]
--- OUTSIDE RECORDS SUMMARY | 2020-06-21 16:11 | CCD | Continuity of Care Document ---
Author Author Aníbal Ramirez Automated Organization Unknown Address Unknown Phone Unavailable Care Team Providers Care Computer Help Desk Specialist Name Role Phone Luis A Tariq Unavailable [...] Ins truction Type: Nutrition education Payers * [facility] Community Plan * [facility]
--- OUTSIDE RECORDS SUMMARY | 2020-06-21 16:12 | CCD ---
Author Author [facility] Organization [facility] Address Unknown Phone Unavailable Support Name Relationship Address Phone SEAN HAMLIN Next Of Kin [address] [place] [address] Angelo HAMLIN Next Of Kin [address] [place] [address] RE Next Of Kin Unknown Unavailable UE Next Of Kin Unknown Unavailable NBA HUBER Next Of Kin [address] [place] [address] UNEMPLOYED Next Of Kin [address] [place] [address] NBA HAMLIN Next Of Kin [address] [place] [address] Nba Hamlin ECON [address] [place] [address] Unavailable Re-disclosure Warning The records that you are about to access may contain information from federally-assisted alcohol or drug abuse programs. If such information is present, then the following federally mandated warning applies: This information has been disclosed to you from records protected by federal confidentiality rules (42 CFR part 2). The federal rules prohibit you from making any further disclosure of this information unless further disclosure is expressly permitted by the written consent of the person to whom it pertains or as otherwise permitted by 42 CFR part 2. A general authorization for the release of medical or other information is NOT sufficient for this purpose. The Federal rules restrict any use of the information to criminally investigate or prosecute any alcohol or drug abuse patient.The records that you are about to access may contain highly sensitive health information, the redisclosure of which is protected by Article 27-F of the [facility] Public Health law. If you continue you may have access to information: Regarding HIV / AIDS; Provided by facilities licensed or operated by the [facility] Office of Mental Health; or Provided by the [facility] Office for People With Developmental Disabilities. If such information is present, then the following [facility] mandated warning applies: This information has been disclosed to you from confidential records which are protected by state law. State law prohibits you from making any further disclosure of this information without the specific written consent of the person to whom it pertains, or as otherwise permitted by law. Any unauthorized further disclosure in violation of state law may result in a fine or skilled nursing sentence or both. A general authorization for the release of medical or other information is NOT sufficient authorization for further disc losure. Allergies and Adverse Reactions Type Description Substance Reaction Status Data Source(s ) Darvocet Darvocet Darvocet active NETSMART ([facility]) Family History Family Member Name Family Member Gender Family Member Status Date o f Status Description Data Source(s) Unknown Male Problem MEDENT ([facility]) Encounters Encounter Providers Location Date Indications Data Source(s ) Unknown [address] [facility] [address] 05/01/2020 12:00:00 AM EST eCW1 ([facility]) 04/27/2020 12:00:00 AM EST - 020 10:50:12 AM EST NETSMART ([facility]) Office Visit, Est Pt., Level 4 PC [address] [place] [address] 04/23/2020 12:00:00 AM EST eCW1 ([facility]) Unknown [address] [facility] [address] 11/23/2019 12:00:00 AM EDT eCW1 ([facility]) Office Visit, Est Pt., Level 3 PC [address] [place] [address] 11/21/2019 12:00:00 AM EDT eCW1 ([facility]) [facility] [place] [address] [facility] [place] [address] 09/09/2019 12:00:00 AM EDT eCW1 ([facility]) [facility] [place] [address] [facility] [address] 08/16/2019 12:00:00 AM EDT eCW1 ([facility]) [facility] [place] [address] [facility] [address] 06/09/2019 12:00:00 AM EST eCW1 ([facility]) Medications Medication Brand Name Start Date Product Form Dose Route Admi nistrative Instructions Pharmacy Instructions Status Indications Reaction Description Data Source(s) 25 mcg 05/21/2020 12:00:00 AM EST tablet 30 TAKE ONE TABLET BY MOUTH EVERY DAY IN THE MORNING ON AN EMPTY STOMACH TAKE ONE TABLET BY MOUTH EVERY DAY IN MORNING ON AN EMPTY STOMACH SOLD: 05/25/2020 [facility] 10 mg 05/21/2020 12:00:00 AM EST tablet 30 TAKE ONE TABLET BY MOUTH EVERY DAY TAKE ONE TABLET BY MOUTH EVERY DAY SOLD: 05/25/2020 [facility] 25 mg 05/07/2020 12:00:00 AM EST tablet 30 TAKE ONE TABLET BY MOUTH EVERY DAY TAKE ONE TABLET BY MOUTH EVERY DAY SOLD: 05/10/2020 [facility] Aspirin Adult Low Dose 81 MG Aspirin Adult Low Dose 04/27/2020 1 2:00:00 AM EST completed NETSMA RT ([facility]) Vitamin B12 1000 MCG Vitamin B12 04/27/2020 12:00:00 AM EST completed NETSMART ([facility]) Simvastatin 10 MG Simvastatin 04/27/2020 12:00:00 AM EST completed NETSMART ([facility]) Synthroid 25 MCG Synthroid 04/27/2020 12:00:00 AM EST completed NETSMART ([facility]) Lisinopril 10 MG Lisinopril 04/27/2020 12:00:00 AM EST completed NETSMART ([facility] ) Chlorthalidone 25 MG Chlorthalidone 04/27/2020 12:00:00 AM EST completed NETSMART ([facility]) Vitamin D 2000 UNIT Vitamin D 04/27/2020 12:00:00 AM EST completed NETSMART ([facility]) Ferrous Sulfate 325 (65 Fe) MG Ferrous Sulfate 04/27/2020 12:00:00 AM EST completed NETSMART ([facility]) Colace 100 MG Colace 04/27/2020 12:00:00 AM EST co mpleted NETSMART ([facility]) Labetalol HCl 200 MG Labetalol HCl 04/27/2020 12:00:00 AM EST completed NETSMART ([facility]) MetFORMIN HCl 1000 MG MetFORMIN HCl 04/27/2020 12:00:00 AM EST completed NETSMART ([facility]) 200 mg 04/22/2020 12:00:00 AM EST tablet 60 TAKE ONE TABLET BY MOUTH TWICE A DAY TAKE ONE TABLET BY MOUTH TWICE A DAY SOLD: 04/22/2020 [facility] 200 mg 04/22/2020 12:00:00 AM EST tablet 60 TAKE ONE TABLET BY MOUTH TWICE A DAY TAKE ONE TABLET BY MOUTH TWICE A DAY SOLD: 05/21/2020 [facility] Metformin hydrochloride 1000 MG Oral Tablet 1,000 mg METFORM IN HCL 03/26/2020 12:00:00 AM EDT tablet 60 TAKE ONE TABLET BY MOUTH TWICE A DAY WITH MEALS TAKE ONE TABLET BY MOUTH TWICE A DAY WITH MEALS SOLD: 04/22/2020 [facility] Metformin hydrochloride 1000 MG Oral Tablet 1,000 mg METFORM IN HCL 03/26/2020 12:00:00 AM EDT tablet 60 TAKE ONE TABLET BY MOUTH TWICE A DAY WITH MEALS TAKE ONE TABLET BY MOUTH TWICE A DAY WITH MEALS SOLD: 05/21/2020 [facility] Metformin hydrochloride 1000 MG Oral Tablet 1,000 mg METFORM IN HCL 03/26/2020 12:00:00 AM EDT tablet 60 TAKE ONE TABLET BY MOUTH TWICE A DAY WITH MEALS TAKE ONE TABLET BY MOUTH TWICE A DAY WITH MEALS SOLD: 03/26/2020 [facility] 200 mg 10/14/2019 12:00:00 AM EDT tablet 60 TAKE ONE TABLET BY MOUTH TWICE A DAY TAKE ONE TABLET BY MOUTH TWICE A DAY SOLD: 03/26/2020 [facility] 200 mg 10/14/2019 12:00:00 AM EDT tablet 60 TAKE ONE TABLET BY MOUTH TWICE A DAY TAKE ONE TABLET BY MOUTH TWICE A DAY SOLD: 10/17/2019 [facility] 200 mg 10/14/2019 12:00:00 AM EDT tablet 60 TAKE ONE TABLET BY MOUTH TWICE A DAY TAKE ONE TABLET BY MOUTH TWICE A DAY SOLD: 11/19/2019 [facility] 200 mg 10/14/2019 12:00:00 AM EDT tablet 60 TAKE ONE TABLET BY MOUTH TWICE A DAY TAKE ONE TABLET BY MOUTH TWICE A DAY SOLD: 01/02/2020 [facility] 200 mg 10/14/2019 12:00:00 AM EDT tablet 60 TAKE ONE TABLET BY MOUTH TWICE A DAY TAKE ONE TABLET BY MOUTH TWICE A DAY SOLD: 01/30/2020 [facility] 200 mg 10/14/2019 12:00:00 AM EDT tablet 60 TAKE ONE TABLET BY MOUTH TWICE A DAY TAKE ONE TABLET BY MOUTH TWICE A DAY SOLD: 02/29/2020 [facility] 1,000 mg 09/10/2019 12:00:00 AM EDT tablet 60 TAKE ONE TABLET BY MOUTH TWICE A DAY WITH MEALS TAKE ONE TABLET BY MOUTH TWICE A DAY WITH MEALS SOLD: 10/13/2019 [facility] 1,000 mg 09/10/2019 12:00:00 AM EDT tablet 60 TAKE ONE TABLET BY MOUTH TWICE A DAY WITH MEALS TAKE ONE TABLET BY MOUTH TWICE A DAY WITH MEALS SOLD: 09/10/2019 [facility] 1,000 mg 09/10/2019 12:00:00 AM EDT tablet 60 TAKE ONE TABLET BY MOUTH TWICE A DAY WITH MEALS TAKE ONE TABLET BY MOUTH TWICE A DAY WITH MEALS SOLD: 11/19/2019 [facility] 10 mg 08/17/2019 12:00:00 AM EDT tablet 30 TAKE ONE TABLET BY MOUTH IN THE EVENING TAKE ONE TABLET BY MOUTH IN THE EVENING SOLD: 10/24/2019 [facility] 10 mg 08/17/2019 12:00:00 AM EDT tablet 30 TAKE ONE TABLET BY MOUTH IN THE EVENING TAKE ONE TABLET BY MOUTH IN THE EVENING SOLD: 09/24/2019 [facility] 10 mg 08/17/2019 12:00:00 AM EDT tablet 30 TAKE ONE TABLET BY MOUTH IN THE EVENING TAKE ONE TABLET BY MOUTH IN THE EVENING SOLD: 04/22/2020 [facility] 10 mg 08/17/2019 12:00:00 AM EDT tablet 30 TAKE ONE TABLET BY MOUTH IN THE EVENING TAKE ONE TABLET BY MOUTH IN THE EVENING SOLD: 08/20/2019 [facility] 10 mg 08/17/2019 12:00:00 AM EDT tablet 30 TAKE ONE TABLET BY MOUTH IN THE EVENING TAKE ONE TABLET BY MOUTH IN THE EVENING SOLD: 05/21/2020 [facility] 10 mg 08/17/2019 12:00:00 AM EDT tablet 30 TAKE ONE TABLET BY MOUTH IN THE EVENING TAKE ONE TABLET BY MOUTH IN THE EVENING SOLD: 11/23/2019 [facility] May Have - UNK 07/10/2019 12:00:00 AM EST active May Have - eCW1 ([facility]) May Have - UNK 07/10/2019 12:00:00 AM EST active May Have - eCW1 ([facility]) May Have - UNK 07/10/2019 12:00:00 AM EST active May Have - eCW1 ([facility]) May Have - UNK 07/10/2019 12:00:00 AM EST active May Have - eCW1 ([facility]) May Have - UNK 07/10/2019 12:00:00 AM EST active as directed eCW1 ([facility]) 200 mg 04/11/2019 12:00:00 AM EST tablet 60 TAKE ONE TABLET BY MOUTH TWICE A DAY TAKE ONE TABLET BY MOUTH TWICE A DAY SOLD: 05/09/2019 [facility] 200 mg 04/11/2019 12:00:00 AM EST tablet 60 TAKE ONE TABLET BY MOUTH TWICE A DAY TAKE ONE TABLET BY MOUTH TWICE A DAY SOLD: 07/07/2019 [facility] 200 mg 04/11/2019 12:00:00 AM EST tablet 60 TAKE ONE TABLET BY MOUTH TWICE A DAY TAKE ONE TABLET BY MOUTH TWICE A DAY SOLD: 09/10/2019 [facility] 200 mg 04/11/2019 12:00:00 AM EST tablet 60 TAKE ONE TABLET BY MOUTH TWICE A DAY TAKE ONE TABLET BY MOUTH TWICE A DAY SOLD: 08/15/2019 [facility] 200 mg 04/11/2019 12:00:00 AM EST tablet 60 TAKE ONE TABLET BY MOUTH TWICE A DAY TAKE ONE TABLET BY MOUTH TWICE A DAY SOLD: 06/09/2019 [facility] 10 mg 04/09/2019 12:00:00 AM EDT tablet 30 TAKE ONE TABLET BY MOUTH EVERY DAY TAKE ONE TABLET BY MOUTH EVERY DAY SOLD: 09/10/2019 [facility] 10 mg 04/09/2019 12:00:00 AM EDT tablet 30 TAKE ONE TABLET BY MOUTH EVERY DAY TAKE ONE TABLET BY MOUTH EVERY DAY SOLD: 11/23/2019 [facility] 10 mg 04/09/2019 12:00:00 AM EDT tablet 30 TAKE ONE TABLET BY MOUTH EVERY DAY TAKE ONE TABLET BY MOUTH EVERY DAY SOLD: 08/15/2019 [facility] 10 mg 04/09/2019 12:00:00 AM EDT tablet 30 TAKE ONE TABLET BY MOUTH EVERY DAY TAKE ONE TABLET BY MOUTH EVERY DAY SOLD: 01/02/2020 [facility] 10 mg 04/09/2019 12:00:00 AM EDT tablet 30 TAKE ONE TABLET BY MOUTH EVERY DAY TAKE ONE TABLET BY MOUTH EVERY DAY SOLD: 03/26/2020 [facility] 25 mcg 04/07/2019 12:00:00 AM EDT tablet 30 TAKE ONE TABLET BY MOUTH EVERY MORNING ON AN EMPTY STOMACH TAKE ONE TABLET BY MOUTH EVERY MORNING O N AN EMPTY STOMACH SOLD: 11/23/2019 [facility] 25 mcg 04/07/2019 12:00:00 AM EDT tablet 30 TAKE ONE TABLET BY MOUTH EVERY MORNING ON AN EMPTY STOMACH TAKE ONE TABLET BY MOUTH EVERY MORNING O N AN EMPTY STOMACH SOLD: 09/10/2019 [facility] 25 mcg 04/07/2019 12:00:00 AM EDT tablet 30 TAKE ONE TABLET BY MOUTH EVERY MORNING ON AN EMPTY STOMACH TAKE ONE TABLET BY MOUTH EVERY MORNING O N AN EMPTY STOMACH SOLD: 01/02/2020 [facility] 25 mcg 04/07/2019 12:00:00 AM EDT tablet 30 TAKE ONE TABLET BY MOUTH EVERY MORNING ON AN EMPTY STOMACH TAKE ONE TABLET BY MOUTH EVERY MORNING O N AN EMPTY STOMACH SOLD: 02/29/2020 [facility] 1,000 mg 09/03/2018 12:00:00 AM EDT tablet 60 TAKE ONE TABLET BY MOUTH TWICE A DAY WITH A MEAL TAKE ONE TABLET BY MOUTH TWICE A DAY WITH A MEAL SOLD: 08/15/2019 [facility] 1,000 mg 09/03/2018 12:00:00 AM EDT tablet 60 TAKE ONE TABLET BY MOUTH TWICE A DAY WITH A MEAL TAKE ONE TABLET BY MOUTH TWICE A DAY WITH A MEAL SOLD: 05/09/2019 [facility] Insurance Providers Payer name Policy type / Coverage type Policy ID Covered green party ID Covered green party's relationship to lovell Policy Lovell Plan Information [facility] [id number] SP [id number] [facility] [id number] SP [id number] [place] [id number] SP [id number] ANS-Medicaid [id number] ANSI-Medicaid [id number] ANSI-Medicaid [id number] ANSI-Medicaid [id number] ANSI-Medicaid [id number] ANSI-Medicaid [id number] ANSI-Medicaid [id number] ANSI-Medicaid [id number] MEDICAID [id number] SP [id number] MEDICAID [id number] Medicaid Medicaid Self SELF PAY UNAVAILABLE SP UNAVAILA BLE Problems, Conditions, and Diagnoses Code Display Name Description Problem Type Effective Dates Data Source(s) I10 Essential (primary) hypertension Essential (primary) h ypertension Problem 04/27/2020 12:00:00 AM EST NETSMART ([facility] ) M17.0 Bilateral primary osteoarthritis of knee Bilateral primary osteoarthritis of knee Problem 04/27/2020 12:00:00 AM EST NETSMART ([facility]) D50.9 Iron deficiency anemia, unspecified Iron deficie ncy anemia, unspecified Problem 04/27/2020 12:00:00 AM EST NETSMART ([facility]) E03.9 Hypothyroidism, unspecified Hypothyroidism, unspecifie d Problem 04/27/2020 12:00:00 AM EST NETSMART ([facility] ) E53.8 Deficiency of other specified B group vi tamins Deficiency of other specified B group vitamins Problem 04/27/2020 12:00:00 AM EST NETSMA RT ([facility]) E55.9 Vitamin D deficiency, unspecified Vitamin D defi ciency, unspecified Problem 04/27/2020 12:00:00 AM EST NETSMART ([facility]) 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 Problem 04/27/2020 12:00:00 AM EST NE TSMART ([facility]) Z91.81 History of falling History of falling Problem 0 12:00:00 AM EST NETSMART ([facility]) E11.9 Type 2 diabetes mellitus without complic ations Type 2 diabetes mellitus without complications Problem 04/24/2020 12:00:00 AM EST NETSMART ([facility]) M51.36 [id number] Degenerative disc disease, lumbar Problem 07/10/2019 12:00:00 AM EST eCW1 ([facility]) M51.36 [id number] Degenerative disc disease, lumbar Problem 07/10/2019 12:00:00 AM EST eCW1 ([facility]) Results ID Date Data Source [id number] 04/23/2020 12:00:00 AM EST eCW1 ([facility]) Name Value Range Interpretation Code Description Data Snehal rce(s) Supporting Document(s) Microalbumin/Creatinine [Mass Ratio] in Urine 205.0 CREATININE, URINE eCW1 ([facility]) Albumin/Creatinine [Mass Ratio] in Urine 79.4 MALB URINE SIEMENS eCW1 ([facility]) Microalbumin/Creatinine [Ratio] in Urine 38.7 0.0-30.0 ADRIANA/CREAT RATIO eCW1 ([facility]) ID Date Data Source FERRITIN 04/23/2020 12:00:00 AM EST eCW1 ([facility]) Name Value Range Interpretation Code Description Data Snehal rce(s) Supporting Document(s) 30 8-252 FERRITIN eCW1 ([facility]) ID Date Data Source LIPID PANEL (CARDIAC RISK) 04/23/2020 12:00:00 AM EST eCW1 ( [facility]) Name Value Range Interpretation Code Description Data Snehal rce(s) Supporting Document(s) Cholesterol [Moles/volume] in Serum or Plasma 139 <200 CHOLESTEROL LEVEL eCW1 ([facility]) Triglyceride [Mass/volume] in Serum or Plasma by calculation 176 <150 TRIGLYCERIDES LEVEL eCW1 ([facility]) Cholesterol in HDL [Moles/volume] in Serum or Plasma 59 >40 HDL CHOLESTEROL eCW1 ([facility]) Cholesterol in LDL [Mass/volume] in Serum or Plasma by calculation 45 <100 LDL CHOLESTEROL eCW1 ([facility]) 80 NON-HDL-C eCW1 ([facility]) 2.355 <5 CHOLESTEROL RISK RATIO eCW1 ([facility]) ID Date Data Source FREE T4 & TSH PANEL 04/23/2020 12:00:00 AM EST eCW1 ([facility]) Name Value Range Interpretation Code Description Data Snehal rce(s) Supporting Document(s) 0.96 0.76-1.46 eCW1 ([facility]) 2.220 0.358-3.740 [facility]CW1 [facility] ID Date Data Source VITAMIN D 25-HYDROXY 04/23/2020 12:00:00 AM EST eCW1 ([facility]) Name Value Range Interpretation Code Description Data Snehal rce(s) Supporting Document(s) 30.4 30.0-100.0 TOTAL 25(OH) VITAMIN D eC W1 ([facility]) ID Date Data Source [id number] 04/23/2020 12:00:00 AM EST eCW1 ([facility]) Name Value Range Interpretation Code Description Data Snehal rce(s) Supporting Document(s) Hemoglobin A1c/Hemoglobin.total in Blood 5.9 HEMOGLOBIN A1c eCW1 ([facility]) ID Date Data Source IRON (FE) 04/23/2020 12:00:00 AM EST eCW1 ([facility]) Name Value Range Interpretation Code Description Data Snehal rce(s) Supporting Document(s) 69 50-170 eCW1 ([facility]) ID Date Data Source Comprehensive Metabolic Profile (CMP) 04/23/2020 12:00:00 AM EST eCW1 ([facility]) Name Value Range Interpretation Code Description Data Snehal rce(s) Supporting Document(s) 0.95 0.55-1.30 CREATININE FOR GFR eCW1 ([facility]) 127 70-100 GLUCOSE, FASTING eCW1 ([facility]) 14 7-18 BLOOD UREA NITROGEN eCW1 ([facility]) > 60.0 >39 GLOMERULAR FILTRATION RATE eCW 1 ([facility]) 4.3 3.5-5.1 POTASSIUM SERUM eCW1 ([facility]) 97 98-107 CHLORIDE LEVEL eCW1 ([facility]) 27 21-32 CARBON DIOXIDE LEVEL eCW1 ([facility]) 133 136-145 SODIUM LEVEL eCW1 ([facility]) 9 12-78 ALT/SGPT eCW1 ([facility]) 9.3 8.8-10.2 CALCIUM LEVEL eCW1 ([facility]) 58 45-117 ALKALINE PHOSPHATASE eCW1 ([facility]) 5 7-37 AST/SGOT eCW1 ([facility]) 0.3 0.2-1.0 BILIRUBIN,TOTAL eCW1 ([facility]) 4.1 3.2-5.2 ALBUMIN eCW1 ([facility]) 1.6 1.2-2.2 ALBUMIN/GLOBULIN RATIO eCW1 ([facility] hospital) 6.7 6.4-8.2 TOTAL PROTEIN eCW1 ([facility]) ID Date Data Source CBC - Complete Blood Count 04/23/2020 12:00:00 AM EST eCW1 ( [facility]) Name Value Range Interpretation Code Description Data Snehal rce(s) Supporting Document(s) 6.1 4.0-10.0 eCW1 ([facility]) 3.92 4.00-5.40 eCW1 ([facility]) 31.5 32.0-36.5 eCW1 ([facility]) 86.7 80.0-96.0 eCW1 ([facility]) 10.7 12.0-15.5 eCW1 ([facility]) 34.0 36.0-47.0 eCW1 ([facility]) 27.3 27.0-33.0 eCW1 ([facility]) 12.4 11.5-14.5 eCW1 ([facility]) 235 150-450 eCW1 ([facility]) Procedure Social History Code Duration Value Status Description Data Source(s ) Smoking 04/23/2020 12:00:00 AM EST Never Smoker completed Never S moker eCW1 ([facility]) Smoking 04/23/2020 12:00:00 AM EST Never Smoker completed Never S moker eCW1 ([facility]) Smoking 11/21/2019 12:00:00 AM EDT Never Smoker completed Never S moker eCW1 ([facility]) Smoking 11/21/2019 12:00:00 AM EDT Never Smoker completed Never S moker eCW1 ([facility]) Vital Signs ID Date Data Source UNK Name Value Range Interpretation Code Description Data Source(s) Diastolic blood pressure 80 mm[Hg] 80 mm[Hg] eCW1 ([facility]) Systolic blood pressure 124 mm[Hg] 124 mm[Hg] e CW1 ([facility]) Body temperature 97.8 [degF] 97.8 [degF] eCW1 ( [facility]) Respiratory rate 18 /min 18 /min eCW1 ([facility]) Heart rate 86 /min 86 /min eCW1 ([facility]) Body mass index (BMI) [Ratio] 22.80 kg/m2 22.80 kg/m2 eCW1 ([facility]) Body height 65 [in_i] 65 [in_i] eCW1 ([facility]) Body weight 137 [lb_av] 137 [lb_av] eCW1 ([facility]) Diastolic blood pressure 70 mm[Hg] 70 mm[Hg] eCW1 ([facility]) Systolic blood pressure 110 mm[Hg] 110 mm[Hg] e CW1 ([facility]) Body temperature 98.5 [degF] 98.5 [degF] eCW1 ( [facility]) Respiratory rate 18 /min 18 /min eCW1 ([facility]) Heart rate 78 /min 78 /min eCW1 ([facility]) Body mass index (BMI) [Ratio] 23.29 kg/m2 23.29 kg/m2 eCW1 ([facility]) Body height 65 [in_i] 65 [in_i] eCW1 ([facility]) Body weight 140 [lb_av] 140 [lb_av] eCW1 ([facility]) Patient Treatment Plan of Care Planned Activity Planned Date Details Description Data Source (s) Colace 100 MG 04/27/2020 12:00:00 AM EST NETSMART ([facility]) Labetalol HCl 200 MG 04/27/2020 12:00:00 AM EST NETSMART ([facility]) MetFORMIN HCl 1000 MG 04/27/2020 12:00:00 AM EST NETSMART ([facility]) Simvastatin 10 MG 04/27/2020 12:00:00 AM EST NETSMART ([facility]) Synthroid 25 MCG 04/27/2020 12:00:00 AM EST NETSMART ([facility]) Lisinopril 10 MG 04/27/2020 12:00:00 AM EST NETSMART ([facility]) Chlorthalidone 25 MG 04/27/2020 12:00:00 AM EST NETSMART ([facility]) Vitamin D 2000 UNIT 04/27/2020 12:00:00 AM EST NETSMART ([facility]) Ferrous Sulfate 325 (65 Fe) MG 04/27/2020 12:00:00 AM EST DAMIANT ([facility]) Vitamin B12 1000 MCG 04/27/2020 12:00:00 AM EST DAMIANT ([facility]) Aspirin Adult Low Dose 81 MG 04/27/2020 12:00:00 AM EST JUAN J ([facility]) October Have - 07/10/2019 12:00:00 AM JEFF little CW1 ([facility])
[2020-06-21 16:29] LABS: CHOLESTEROL LEVEL 126 MG/DL (<200); CHOLESTEROL RISK RATIO 2.333 (<5); HDL CHOLESTEROL 54 MG/DL (>40); LDL CHOLESTEROL 44 MG/DL (<100); NON-HDL-C 72 MG/DL; TRIGLYCERIDES LEVEL 140 MG/DL (<150)
--- NOTE | 2020-06-21 16:43 | ECGEPIP ---
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
--- NOTE | 2020-06-21 17:39 | REPVR ---
PROCEDURE INFORMATION: Exam: US Duplex Bilateral Extracranial Arteries Exam date and time: 06/21/2020 4:45 PM Age: 74 years old Clinical indication: Alteration of consciousness; Transient alteration of awareness; Additional info: TIA TECHNIQUE: Imaging protocol: Real-time Duplex ultrasound scan of the bilateral carotid and vertebral arteries combining khan scale, color Doppler and spectral waveform analysis. Bilateral exam. COMPARISON: CT Head without contrast 06/21/2020 1:36 PM FINDINGS: Right common carotid artery: Unremarkable. No occlusion or stenosis. Waveforms are normal. Right internal carotid artery: Grayscale images demonstrate mild right carotid bulb atherosclerotic plaque. No velocity elevation. Right ICA/CCA ratio: Within normal limits. 1.5. Right external carotid artery: No stenosis in the origin. Right vertebral artery: Unremarkable. Antegrade flow. Left common carotid artery: Unremarkable. No occlusion or stenosis. Waveforms are normal. Left internal carotid artery: Grayscale images demonstrate mild left carotid bulb atherosclerotic plaque. No velocity elevation. Left ICA/CCA ratio: Within normal limits. 1.2. Left external carotid artery: No stenosis in the origin. Left vertebral artery: Unremarkable. Antegrade flow. The thyroid gland appears enlarged and heterogeneous. A left thyroid mass measures 3.9 x 3.0 x 2.1 cm. IMPRESSION: 1. Less than 50% right ICA stenosis. 2. Less than 50% left ICA stenosis. 3. The vertebral arteries are patent and antegrade. 4. Recommend a nonemergent dedicated thyroid ultrasound to assess a left thyroid mass measuring 3.9 cm. REFERENCES: SRU CRITERIA. The degree of internal carotid artery stenosis is based on criteria defined by the Society of Radiologists in Ultrasound (SRU). Normal is no stenosis. Mild is less than 50% stenosis. Moderate is 50-69% stenosis. Severe is greater than 69% stenosis to near occlusion. Near occlusion is a markedly narrowed lumen. Total occlusion is no detectable patent lumen. Electronically signed by: Lindsey Deleon On 06/21/2020 17:39:25 PM
[2020-06-21 18:45] VITALS: BP 180/86
[2020-06-21] MEDS: LABETALOL 200 MG TAB PO SCH (19:49)
--- NOTE | 2020-06-21 19:59 | HPEPDOC ---
General Date of Admission Jun 21, 2020 at 13:13 Date of Service: Jun 21, 2020 Chief Complaint The patient is a 74-year-old female admitted with a reason for visit of TIA. Source: Patient, Family History of Present Illness Mrs. Gongora is a 74-year-old female with diabetes and hypertension who presents with transient aphasia and leaning towards the right. She does not speak Latvian and her daughter was present to help translate. Patient was in good health today. She had a good breakfast. She went to [facility] with her daughter. While walking back from [facility], she noted that her mother was leaning on her right. She was telling her mother to stand straight, but she couldn't speak. The aphasia lasted for about 10-15 minutes. Afterwards, the mother said she could hear everything, but she cannot form words. This is the first time it's ever happened before. Denies any cardiac history or prior CVAs. She is on aspirin and a low dose statin. While in the ED, CT head was negative for ICH. She will be admitted for TIA and we will proceed with stroke workup. I did discuss CODE STATUS with the daughter. They have decided to be full code with the understanding that we would either do chest compressions if her heart were to stop and we would intubate if her lungs were to stop Home Medications Scheduled Aspirin (Aspirin EC) 81 Mg Tablet.dr, 81 MG PO QHS, (Reported) Chlorthalidone (Chlorthalidone) 25 Mg Tablet, 25 MG PO DAILY, (Reported) Cholecalciferol (Vitamin D3) (Vitamin D3) 1,000 Unit Tablet, 1,000 UNITS PO DAILY, (Reported) Labetalol HCl (Labetalol HCl) 200 Mg Tablet, 200 MG PO BID, (Reported) Levothyroxine Sodium (Synthroid) 25 Mcg Tablet, 25 MCG PO DAILY, (Reported) Lisinopril (Lisinopril) 10 Mg Tablet, 10 MG PO DAILY, (Reported) Metformin HCl (Metformin HCl) 1,000 Mg Tablet, 1,000 MG PO BID, (Reported) Simvastatin (Simvastatin) 10 Mg Tablet, 10 MG PO QHS, (Reported) Allergies Coded Allergies: Penicillins (Verified Allergy, Unknown, unknown, 11/13/19) Past Medical History Medical History 1. Hypertension 2. Diabetes mellitus 3. Cataracts 4. Hypothyroidism Surgical History 1. Left cataract surgery Family History Daughter denies any medical history and her mom's parents Social History * Smoker: Denies Alcohol: Denies Drugs: denies A-FIB/CHADSVASC A-FIB History Current/History of A-Fib/PAF?: No Review of Systems Constitutional: Denies: Chills, Fever Eyes: Denies: Vision change ENT: Denies: Sore Throat Skin: Denies: Rash Pulmonary: Denies: Dyspnea, Cough Cardiovascular: Denies: Chest Pain Gastrointestinal: Denies: Nausea, Abdominal Pain Genitourinary: Denies: Dysuria Hematologic: Denies: Bruising Neurological: Denies: Weakness Physical Examination General Exam: Positive: Alert, Cooperative, No Acute Distress Eye Exam: Positive: EOMI; Negative: Sclera icteric ENT Exam: Positive: Atraumatic Neck Exam: Positive: Supple Chest Exam: Positive: Clear to auscultation; Negative: Rales, Rhonchi, Wheezing Heart Exam: Positive: Rate Normal, Regular Rhythm Abdomen Exam: Positive: Normal bowel sounds, Soft; Negative: Tenderness Extremity Exam: Negative: Edema Neuro Exam: Positive: Cranial Nerves 3-12 NL Psych Exam: Positive: Mental status NL, Mood NL Vital Signs Vital Signs Date Time Temp Pulse Resp B/P (MAP) Pulse Ox O2 Delivery O2 Flow Rate FiO2 06/21/20 18:45 98.6 63 18 180/86 (117) 100 06/21/20 17:57 Room Air Laboratory Data Labs 24H Laboratory Tests 2 06/21/20 13:26: Anion Gap 7L, Glomerular Filtration Rate > 60.0, Osmolality 283, Calcium Level 9.2, Total Bilirubin 0.3, Direct Bilirubin < 0.1, Aspartate Amino Transf (AST/SGOT) 10, Alanine Aminotransferase (ALT/SGPT) 15, Alkaline Phosphatase 62, Total Creatine Kinase 69, Creatine Kinase MB 1.6, Creatine Kinase MB Relative Index 2.32, Troponin I < 0.02, Total Protein 6.4, Albumin 3.8, Albumin/Globulin Ratio 1.5, Triglycerides Level 140, Total Cholesterol 126, LDL Cholesterol 44, Non-HDL Cholesterol (LDL + VLDL) 72, Total HDL Cholesterol 54, Cholesterol/HDL Ratio 2.333, Thyroid Stimulating Hormone (TSH) 4.830H 06/21/20 13:29: Immature Granulocyte % (Auto) 0.3, Neutrophils (%) (Auto) 67.9H, Lymphocytes (%) (Auto) 17.2L, Monocytes (%) (Auto) 8.5H, Eosinophils (%) (Auto) 5.8H, Basophils (%) (Auto) 0.3, Neutrophils # (Auto) 4.5, Lymphocytes # (Auto) 1.2L, Monocytes # (Auto) 0.6, Eosinophils # (Auto) 0.4, Basophils # (Auto) 0.0, Nucleated Red Blood Cells % (auto) 0.0 06/21/20 13:32: Lactic Acid Level 3.1*H, Ammonia 12 06/21/20 18:01: Lactic Acid Followup at 4 Hours 2.2*H CBC/BMP Laboratory Tests 06/21/20 13:26 06/21/20 13:29 Microbiology Microbiology 06/21/20 Respiratory Virus Panel (PCR) ([facility]) - Final, Complete Assessment/Plan Mrs. Gongora is a 74-year-old female with diabetes and hypertension who presents with transient aphasia and leaning towards the right. Is suspicious for TIA. She'll be worked up with telemetry monitoring, echocardiogram, ultrasound of the carotids, and MRI and MRA of brain. We'll have physical therapy and speech therapy to work with her. We will continue aspirin and increase statin to a high-dose statin Plan / VTE VTE Prophylaxis Ordered?: Yes Plan Plan 1. TIA Had transient aphasia and right-sided weakness for about 10-15 minutes Risk factors include diabetes mellitus and hypertension Continue aspirin and increase stent to high-dose statin Last HbA1c was 5.9 in April 2020. We'll update a lipid panel edge painter on telemetry for A. fib Obtain echocardiogram to look for thrombus Obtain ultrasound of the carotids to look for stenosis Obtain MRI and MRA of brain 2. Hypertension Continue chlorthalidone, lisinopril, and labetalol 3. Diabetes mellitus Carbohydrate consistent diet Sliding scale insulin and hypoglycemic protocol 4. Lactic acidosis No signs of hypoperfusion Likely secondary to metformin 5. DVT prophylaxis SCDs and teds KAVEH ALBA DO Jun 21, 2020 19:59
[2020-06-21] MEDS ORDERED: GLUCOSE 4GM CHEW TABLET PO PRN (20:00)
[2020-06-21] MEDS ORDERED: DEXTROSE 50% 50 ML SYRINGE IV PRN (20:00)
[2020-06-21] MEDS ORDERED: GLUCAGON INJ 1MG VIAL SC PRN (20:00)
[2020-06-21] MEDS ORDERED: ATORVASTATIN 20 MG TAB PO SCH (21:00)
[2020-06-21] MEDS ORDERED: ASPIRIN 81 MG ENTERIC TAB PO SCH (21:00)
[2020-06-21] MEDS ORDERED: HumaLOG INSULIN (NovoLOG) PER UNIT SC SCH (21:00)
[2020-06-21 22:00] VITALS: BP 174/88
--- NOTE | 2020-06-21 22:01 | REPVR ---
PROCEDURE INFORMATION: Exam: MR Angiogram Head Without Contrast, Arteries Exam date and time: 06/21/2020 8:55 PM Age: 74 years old Clinical indication: Dizziness and giddiness and syncope and collapse; Additional info: TIA TECHNIQUE: Imaging protocol: MR angiogram head without contrast. Exam focused on the arteries. COMPARISON: CT Head without contrast 06/21/2020 1:36 PM FINDINGS: ANTERIOR CIRCULATION: Right internal carotid artery: Intracranial segment is patent with no significant stenosis. No aneurysm. Right middle cerebral artery: No occlusion or significant stenosis. No aneurysm. Right anterior cerebral artery: No occlusion or significant stenosis. No aneurysm. Left internal carotid artery: Intracranial segment is patent with no significant stenosis. No aneurysm. Left middle cerebral artery: No occlusion or significant stenosis. No aneurysm. Left anterior cerebral artery: No occlusion or significant stenosis. No aneurysm. POSTERIOR CIRCULATION: Right vertebral artery: No occlusion or significant stenosis. No aneurysm. Left vertebral artery: No occlusion or significant stenosis. No aneurysm. Basilar artery: No occlusion or significant stenosis. No aneurysm. Right posterior cerebral artery: origin of the right posterior cerebral artery. Severe stenosis versus occlusion of the right posterior cerebral artery in the P3 and P4 segments. Left posterior cerebral artery: No occlusion or significant stenosis. No aneurysm. 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 Electronically signed by: Francisco Campbell On 06/21/2020 22:00:53 PM
--- NOTE | 2020-06-21 22:07 | REPVR ---
PROCEDURE INFORMATION: Exam: MR Head Without Contrast Exam date and time: 06/21/2020 8:55 PM Age: 74 years old Clinical indication: Dizziness and syncope and collapse; Additional info: TIA TECHNIQUE: Imaging protocol: MR of the head without contrast. COMPARISON: CT Head without contrast 06/21/2020 1:36 PM FINDINGS: Brain: Moderate chronic microvascular ischemic changes. No acute infarct. Cerebral ventricles: Normal. No ventriculomegaly. Bones/joints: Unremarkable. Paranasal sinuses: Normal as visualized. No acute sinusitis. Mastoid air cells: Normal as visualized. No mastoid effusion. Orbits: Bilateral cataract surgery. Soft tissues: Unremarkable. Other findings: No hemorrhage. IMPRESSION: No acute intracranial abnormality. Electronically signed by: Francisco Campbell On 06/21/2020 22:06:55 PM
[2020-06-22 06:00] VITALS: BP 172/85
[2020-06-22] MEDS ORDERED: LEVOTHYROXINE 25MCG TABLET (0.025MG) PO SCH (06:00)
[2020-06-22] MEDS: HumaLOG INSULIN (NovoLOG) PER UNIT SC SCH ×2 (07:30→12:00)
[2020-06-22 08:40] VITALS: BP 160/76
[2020-06-22] MEDS: LABETALOL 200 MG TAB PO SCH (08:40)
[2020-06-22] MEDS ORDERED: VITAMIN D 1,000 INTERNATIONAL UNITS TABLET PO SCH (09:00)
[2020-06-22] MEDS ORDERED: CHLORTHALIDONE 25 MG TAB PO SCH (09:00)
[2020-06-22] MEDS ORDERED: CLOPIDOGREL 75 MG TAB PO SCH (09:00)
[2020-06-22] MEDS ORDERED: CLOP75TA2 PO (12:14)
[2020-06-22] MEDS ORDERED: ATOR40TA75 PO (12:14)
[2020-06-22] MEDS ORDERED: ATORVASTATIN 20 MG TAB PO SCH (21:00)
--- NOTE | 2020-06-22 21:27 | DS.PDOC ---
Discharge Summary General Date of Admission Jun 21, 2020 at 13:13 Date of Discharge Jun 22, 2020 Attending Physician: KAVEH ALBA DO Discharge Summary PROCEDURES PERFORMED DURING STAY: None ADMITTING DIAGNOSES: 1. TIA 2. Hypertension 3. Diabetes mellitus 4. Lactic acidosis DISCHARGE DIAGNOSES: 1. TIA 2. Hypertension 3. Diabetes mellitus 4. Lactic acidosis COMPLICATIONS/CHIEF COMPLAINT: TIA. HISTORY OF PRESENT ILLNESS: Mrs. Gongora is a 74-year-old female with diabetes and hypertension who presents with transient aphasia and leaning towards the right. She does not speak [place]uran and her daughter was present to help translate. Patient was in good health today. She had a good breakfast. She went to [facility] with her daughter. While walking back from [facility], she noted that her mother was leaning on her right. She was telling her mother to stand straight, but she couldn't speak. The aphasia lasted for about 10-15 minutes. Afterwards, the mother said she could hear everything, but she cannot form words. This is the first time it's ever happened before. Denies any cardiac history or prior CVAs. She is on aspirin and a low dose statin. While in the ED, CT head was negative for ICH. She will be admitted for TIA and we will proceed with stroke workup HOSPITAL COURSE: No events overnight. Telemetry did not demonstrate atrial fibrillation. MRI brain was negative for ischemic stroke and US carotids was negative for stenosis. MRA head did demonstrate multifocal severe stenosis versus occlusion of the right posterior cerebral artery in the P3 and P4 segments. I reached out to neurology. No need for intervention at this time, but neurology did recommend DAPT and follow up outpatient. I saw the patient this morning with daughter present in the room translation. Patient feels well. No reoccurrence of aphasia or weakness. I explained the results of the test recommendations of from neurology. I also explained that I'll be switching her from simvastatin to Atorvastatin 40mg qHS. Patient was agreeable and discharge today after completing the TTE. DISCHARGE MEDICATIONS: Please see below. ALLERGIES: Please see below. PHYSICAL EXAMINATION ON DISCHARGE: VITAL SIGNS: Please see below. GENERAL: Comfortable, in no apparent distress HEENT: Head normocephalic, atraumatic NECK: Supple CARDIOVASCULAR EXAMINATION: Regular rate and rhythm RESPIRATORY EXAMINATION: Lungs clear to auscultation bilaterally ABDOMINAL EXAMINATION: Soft, non-tender, normal bowel sounds EXTREMITIES: No pitting edema bilaterally SKIN: Warm and dry NEUROLOGICAL EXAMINATION: CN 3-12 grossly intact PSYCHIATRIC EXAMINATION: Normal mood and affect LABORATORY DATA: Please see below. IMAGING: CT head No acute intracranial abnormality seen. MRI No acute intracranial abnormality. 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 US carotid 1. Less than 50% right ICA stenosis. 2. Less than 50% left ICA stenosis. 3. The vertebral arteries are patent and antegrade. 4. Recommend a nonemergent dedicated thyroid ultrasound to assess a left thyroid mass measuring 3.9 cm. PROGNOSIS: Good ACTIVITY: As tolerated. DIET: Carbohydrate consistent diet DISCHARGE PLAN: Home DISPOSITION: 01 Home, Self-Care. DISCHARGE INSTRUCTIONS: 1. Follow up with your PCP in 1 week 2. Follow up with neurology (Dr. Stinson) in 1 week ITEMS TO FOLLOWUP ON ON OUTPATIENT: 1. Echocardiogram DISCHARGE CONDITION: Stable. Total time spent on discharge planning, discharge summary, and medication reconciliation: 45 minutes Vital Signs/I&Os Vital Signs Date Time Temp Pulse Resp B/P (MAP) Pulse Ox O2 Delivery O2 Flow Rate FiO2 06/22/20 08:40 160/76 06/22/20 06:00 98.8 64 18 98 Room Air I&O- Last 24 Hours up to 6 AM 06/22/20 05:59 Intake Total 300 ml Output Total 850 ml Balance -550 ml Laboratory Data Labs 24H Laboratory Tests 2 06/21/20 22:32: Bedside Glucose (Misc Panel) 158H 06/22/20 08:20: Bedside Glucose (Misc Panel) 199H 06/22/20 11:40: Bedside Glucose (Misc Panel) 97 FSBS Laboratory Tests Test 06/21/20 22:32 06/22/20 08:20 06/22/20 11:40 Range/Units Bedside Glucose (Misc Panel) 158 199 97 83-110 MG/DL Microbiology Microbiology 06/21/20 Respiratory Virus Panel (PCR) ([facility]) - Final, Complete Discharge Medications Scheduled Aspirin (Aspirin EC) 81 Mg Tablet., 81 MG PO QHS, (Reported) Atorvastatin Calcium (Atorvastatin Calcium) 40 Mg Tablet, 40 MG PO QPM Chlorthalidone (Chlorthalidone) 25 Mg Tablet, 25 MG PO DAILY, (Reported) Cholecalciferol (Vitamin D3) (Vitamin D3) 1,000 Unit Tablet, 1,000 UNITS PO DAILY, (Reported) Clopidogrel Bisulfate (Clopidogrel) 75 Mg Tablet, 75 MG PO DAILY Labetalol HCl (Labetalol HCl) 200 Mg Tablet, 200 MG PO BID, (Reported) Levothyroxine Sodium (Synthroid) 25 Mcg Tablet, 25 MCG PO DAILY, (Reported) Lisinopril (Lisinopril) 10 Mg Tablet, 10 MG PO DAILY, (Reported) Metformin HCl (Metformin HCl) 1,000 Mg Tablet, 1,000 MG PO BID, (Reported) Allergies Coded Allergies: Penicillins (Verified Allergy, Unknown, unknown, 11/13/19) KAVEH ALBA DO Jun 22, 2020 21:27
--- NOTE | 2020-06-26 08:14 | ECHO ---
DATE OF PROCEDURE: 06/22/2020 Age: 74 Gender: Female Height: 152 cm Weight: 63 kg REFERRING PHYSICIAN: Dung Brizuela DO INDICATION: Transient cerebral ischemia, unspecified. MEASUREMENTS: 2D Measurements: Aortic root 2.8 cm Left atrium 3.4 cm Intraventricular septum 1.42 cm Posterior wall 1.44 cm Left ventricle diastole 4.1 cm Inferior vena cava 1.8 cm Doppler Measurements: Mild aortic regurgitation No aortic stenosis Aortic valve velocity 185 cm/s LVOT velocity 104 cm/s Very mild mitral regurgitation Mitral E velocity 95.1 cm/s Mitral A velocity 116 cm/s Mitral deceleration time 272 msec Very mild mitral regurgitation Estimated right ventricular systolic pressure 36-41 mmHg Estimated right atrial pressure 5-10 mmHg No pulmonic regurgitation MITRAL ANNULAR TISSUE DOPPLER E prime septal 5.4 cm/s, E prime lateral 7.2 cm/s DESCRIPTION: Rhythm was sinus rhythm and sinus bradycardia. This was a moderately technically difficult echocardiogram. CONCLUSIONS: 1. Mild concentric left ventricular hypertrophy. Normal regional LV wall motion and wall thickening. Normal LV systolic function. LVEF 65% by visual estimate. Grade 1 LV diastolic dysfunction (impaired relaxation filling pattern). 2. Negative saline bubble study for detection of intracardiac shunting. 3. Moderate aortic valve sclerosis of a 3-cuspid aortic valve. Mild aortic regurgitation. No aortic stenosis. 4. Moderate mitral annular calcification. Very mild mitral regurgitation. No mitral stenosis. 5. Suggestive of mild-moderate elevation of estimated right ventricle systolic pressure. 6. Very small pericardial effusion. MTDD
== END 2020-06-22 13:58 | disposition home or self-care (01) ==
LOC: M ED 13:12 → EDBD 13:12 → M ED INP 13:13 → M MSPAV 18:23
PROVIDERS: ADMIT Internal Medicine; ATTEND Internal Medicine
DX: G45.9 Transient cerebral ischemic attack, unspecified (principal); I10 Essential (primary) hypertension; E11.9 Type 2 diabetes mellitus without complications; E87.2 Acidosis; E03.9 Hypothyroidism, unspecified; Z79.82 Long term (current) use of aspirin; Z79.899 Other long term (current) drug therapy; Z88.0 Allergy status to penicillin

== ENCOUNTER → 2020-08-03 | Outpatient (CLI) | payer OTHER ==
[~2020-08-03] MED LIST changes: +ASPI-161 PO; +ATOR40TA75 PO; +CLOP75TA2 PO; +D31000TA2 PO; +LABE20TAB PO
--- NOTE | 2020-08-03 13:50 | REP ---
INDICATION: THYROID MASS. COMPARISON: Comparison is made with a C-spine CT imaging from November 13, 2019. Carotid sonography June 21, 2020.. TECHNIQUE: Bilateral thyroid sonography. FINDINGS: Thyroid isthmus is thickened measuring 0.9 cm in AP dimension. Right lobe dimensions are 5.0 x 2.3 x 2.7 cm. The left thyroid lobe measures 5.4 x 2.3 x 2.8 cm. Thyroid parenchyma is heterogeneous. Thyroid parenchyma is also diffusely hyperemic. The changes suggest thyroiditis. There is a focal calcification in the thyroid just to the left of midline in the isthmus. Nodular changes are noted in the lower pole of the left thyroid lobe and there is a 3.3 cm area, however I am not convinced this is a nodule. Rather, appearance suggests heterogeneous parenchyma associated with thyroiditis bilaterally. The gland has a similar appearance on the November 13, 2019 CT study of the neck. IMPRESSION: Heterogeneous enlargement of the thyroid gland. Thyroid gland is hyperemic as well on Doppler. Findings compatible with thyroiditis. No definite thyroid nodule or mass. <Electronically signed by Oleg Conner > 08/03/20 [id number]
== END ==
LOC: M WHC 10:05
PROVIDERS: ATTEND Nurse Practitioner Adult Health
DX: E07.9 Disorder of thyroid, unspecified (principal)

== ENCOUNTER → 2020-09-04 | Outpatient (REF) | payer OTHER ==
[2020-09-04 12:15] LABS: COLLAGEN EPINEPHRINE > 300 SECONDS (74-162)
[2020-09-04 12:37] LABS: COLLAGEN ADP 115 SECONDS (56-103)
== END ==
LOC: M PLALAB 11:41
PROVIDERS: ATTEND Internal Medicine Cardiovascular Disease
DX: R06.02 Shortness of breath (principal)

== ENCOUNTER → 2020-09-04 | Outpatient (CLI) | payer OTHER ==
--- NOTE | 2020-09-05 04:49 | REPPI ---
INDICATION: PULMONARY HYPERTENSION COMPARISON: 11/26/2008 TECHNIQUE: PA and lateral. FINDINGS: The mediastinum and cardiac silhouette are normal. The lung dong are clear and without acute consolidation, effusion, or pneumothorax. The skeletal structures are intact and normal. IMPRESSION: No acute cardiopulmonary process. <Electronically signed by Jarred Marshall > 09/05/20 [id number]
== END ==
LOC: M PLAIMG 11:19
PROVIDERS: ATTEND Internal Medicine Cardiovascular Disease
DX: I27.20 Pulmonary hypertension, unspecified (principal)

== ENCOUNTER 2020-09-10 16:58 | Observation (INO) | payer OTHER ==
[~2020-09-10] VITALS: Ht 165.1 cm; Wt 58.4 kg
--- NOTE | 2020-09-10 17:28 | REPVR ---
PROCEDURE INFORMATION: Exam: CT Head Without Contrast Exam date and time: 09/10/2020 5:21 PM Age: 74 years old Clinical indication: Weakness, extremity; Additional info: CVA - nursing interventions must not delay CT TECHNIQUE: Imaging protocol: Computed tomography of the head without contrast. Radiation optimization: All CT scans at this facility use at least one of these dose optimization techniques: automated exposure control; mA and/or kV adjustment per patient size (includes targeted exams where dose is matched to clinical indication); or iterative reconstruction. Other technique: STROKE PROTOCOL was implemented. COMPARISON: CT Head without contrast 06/21/2020 1:36 PM FINDINGS: Brain: There are moderate periventricular and subcortical lucencies consistent with chronic microvascular ischemic changes. The khan-white differentiation is maintained. No hemorrhage. No edema. Cerebral ventricles: No ventriculomegaly. Bones/joints: Unremarkable. No acute fracture. Paranasal sinuses: Visualized sinuses are unremarkable. No fluid levels. Mastoid air cells: Visualized mastoid air cells are well aerated. Soft tissues: Unremarkable. IMPRESSION: No acute intracranial abnormality. Chronic microvascular ischemic changes. ASSESSMENT: ASPECTS ([place] Stroke Program Early CT Score) is 10. Electronically signed by: Francisco Campbell On 09/10/2020 17:28:28 PM
--- NOTE | 2020-09-10 17:32 | REP ---
INDICATION: CVA. COMPARISON: 09/04/2020. TECHNIQUE: SINGLE PORTABLE AP VIEW OF THE CHEST WAS PERFORMED. FINDINGS: THERE IS NO ACUTE INFILTRATE OR PULMONARY EDEMA. LUNGS ARE CLEAR. HEART IS NOT SIGNIFICANTLY ENLARGED. MEDIASTINAL SILHOUETTE IS UNREMARKABLE, except for mild tortuosity of the thoracic aorta. THE VISUALIZED OSSEOUS STRUCTURES ARE INTACT. IMPRESSION: NO ACUTE PULMONARY DISEASE. <Electronically signed by Angel Luis Brumfield > 09/10/20 [id number]
[2020-09-10 19:49] LABS: BASO % 0.4 % (0.0-1.0); EOS # 0.2 10^3/uL (0.0-0.5); EOS % 2.7 % (0.0-3.0); HEMATOCRIT 32.7 % (36.0-47.0); HEMOGLOBIN 10.8 g/dl (12.0-15.5); LYMPH # 1.3 10^3/uL (1.5-5.0); LYMPH % 22.4 % (24.0-44.0); MEAN CORPUSCULAR HEMOGLOBIN 28.2 pg (27.0-33.0); MEAN CORPUSCULAR VOLUME 85.4 fl (80.0-96.0); MONO # 0.6 10^3/uL (0.0-0.8); MONO % 10.2 % (2.0-8.0); NEUTROPHILS # 3.6 10^3/uL (1.5-8.5); NEUTROPHILS % 63.9 % (36.0-66.0); PLATELET COUNT, AUTOMATED 188 10^3/uL (150-450); RED BLOOD COUNT 3.83 10^6/uL (4.00-5.40); WHITE BLOOD COUNT 5.6 10^3/uL (4.0-10.0)
[2020-09-10 20:31] LABS: ALT/SGPT 15 U/L (12-78); BILIRUBIN,DIRECT 0.2 MG/DL (0.0-0.2); BILIRUBIN,TOTAL 0.4 MG/DL (0.2-1.0); BLOOD UREA NITROGEN 16 MG/DL (7-18); CALCIUM LEVEL 9.3 MG/DL (8.8-10.2); CARBON DIOXIDE LEVEL 32 MEQ/L (21-32); CHLORIDE LEVEL 93 MEQ/L (98-107); CK-MB VALUE MASS 1.5 NG/ML (<3.6); CPK CREATINE PHOSPHOKINASE 92 U/L (26-192); CREATININE FOR GFR 0.54 MG/DL (0.55-1.30); FREE T4 0.94 NG/DL (0.76-1.46); GLOMERULAR FILTRATION RATE > 60.0 (>39); GLUCOSE, FASTING 108 MG/DL (70-100); MB/CK RELATIVE INDEX 1.63 (< OR =4); POTASSIUM SERUM 3.5 MEQ/L (3.5-5.1); SODIUM LEVEL 131 MEQ/L (136-145); TOTAL PROTEIN 6.8 GM/DL (6.4-8.2); TROPONIN I < 0.02 NG/ML (< 0.10)
[2020-09-10] MEDS ORDERED: LABETALOL 200 MG TAB PO ONE (20:55)
[2020-09-10] MEDS ORDERED: ATORVASTATIN 20 MG TAB PO SCH (21:00)
[2020-09-10] MEDS ORDERED: ASPIRIN 81MG ENTERIC TABLET PO SCH (21:00)
--- NOTE | 2020-09-10 21:09 | REPVR ---
PROCEDURE INFORMATION: Exam: MR Lumbar Spine Without Contrast Exam date and time: 09/10/2020 8:06 PM Age: 74 years old Clinical indication: Low back pain; Additional info: Back pain, leg weakness TECHNIQUE: Imaging protocol: Multiplanar magnetic resonance images of the lumbar spine without intravenous contrast. COMPARISON: CR Spine. Lumbosacral, complete 10/11/2015 11:14 AM FINDINGS: Vertebrae: There is no acute compression fracture in the lumbar spine. There is no spondylolisthesis. There is diffuse degenerative facet arthropathy Spinal cord: The conus medullaris is normal appearance at the L1-L2 level. L1-L2: No significant spinal canal stenosis or neural foraminal narrowing. L2-L3: No significant spinal canal stenosis or neural foraminal narrowing. L3-L4: No significant spinal canal stenosis or neural foraminal narrowing. L4-L5: There is a mildly bulging annulus with mild narrowing of the lateral recesses but no definite compression of the exiting L5 nerve roots. The neural foramina are patent. L5-S1: Asymmetrically bulging annulus more prominent to the left of midline with mild spinal canal stenosis without evidence of compression of the exiting S1 nerve roots. There is mild bilateral neural foraminal narrowing without significant compression of the L5 nerve roots. Soft tissues: Unremarkable. IMPRESSION: Diffuse degenerative disc disease most prominent at the L5-S1 level without significant spinal canal stenosis or neural foraminal narrowing. No evidence of disc herniation. Electronically signed by: Martha Ellis On 09/10/2020 21:09:41 PM
[2020-09-10] MEDS ORDERED: ATOR40TA75 PO (21:46)
[2020-09-10] MEDS ORDERED: CLOP75TA2 PO (21:46)
[2020-09-10] MEDS ORDERED: MOM 30ML SUSPENSION UDC PO PRN (23:40)
[2020-09-10] MEDS ORDERED: ACETAMINOPHEN TAB 650MG DOSE (2X325MG) PO PRN (23:40)
[2020-09-10] MEDS ORDERED: MAALOX 30 ML SUSP *UDC PO PRN (23:40)
[2020-09-10] MEDS ORDERED: NS 1,000 ML IV SCH (23:40)
[2020-09-11 00:17] LABS: RSV AMPLIFICATION NEGATIVE (NEGATIVE)
[2020-09-11 01:33] VITALS: BP 160/68
--- NOTE | 2020-09-11 01:43 | HPEPDOC ---
[facility] Medical History & Physical Date of Admission Sep 11, 2020 Date of Service: Sep 11, 2020 Attending Physician: URSZULA RODRÍGUEZ MD History and Physical CHIEF COMPLAINT: [74 year old female who presents complaining of lower extremity weakness x1 week.] HISTORY OF PRESENT ILLNESS: [This is a 74 year old female with a pmh of htn, niddm, and hypothyroidism who presents to the ED with her daughter, Nicola, complaining of increased lower extremity weakness of 1 weeks duration. Important of note, patient does not speak luxembourgish. Daughter acts as fueler. Daughter states that her mother is normally very mobile at baseline, but the family has noticed recently that she has been unable to get around very well over the past week. Daughter states that it has gotten to the point where she has to walk with assistance device where she did not need to before. Daughter states that her mother seems to be having a hard time standing on her own power. Denies falls. This has never happened before. They deny sob, chest pain, joint pain, back pain, nausea, vomiting, constipation, diarrhea, fever, chills, cough, congestion, malaise. Her oral intake has been good and she has normal bm's per daughter.] PAST MEDICAL HISTORY: 1. [See HPI PAST SURGICAL HISTORY: 1. [Left cataract removal]. 2. [Colonoscopy]. SOCIAL HISTORY: Resides in: [Home with daughter] Employment: [retired] Tobacco use:[denies] ETOH: [denies] Illicit drug use: [denies] ALLERGIES: Please see below. REVIEW OF SYSTEMS: CONSTITUTIONAL: [See HPI]. HEENT: [See HPI]. CARDIOVASCULAR: [See HPI]. RESPIRATORY: [See HPI]. GASTROINTESTINAL: [See HPI]. GENITOURINARY: [See HPI]. SKIN: [Denies rash]. MUSCULOSKELETAL: [See HPI]. NEUROLOGICAL: [See HPI].. ENDOCRINE: [See HPI]. HEMATOLOGIC/LYMPHATIC: [Denies brusiing]. HOME MEDICATIONS: Please see below. PHYSICAL EXAMINATION: VITAL SIGNS: Please see below GENERAL APPEARANCE: [This is a 74 year old female. She is seated comfortably in bed in no distress]. HEENT: [No mass, lesion. No scleral icterus. Nares patent. Oral mucosa moist]. CARDIOVASCULAR: [Regular rate, rhythm. No murmurs, rubs, gallops]. LUNGS: [Good air flow auscultated. No wheezing, rales, rhonchi]. ABDOMEN: [Soft, non-tender]. MUSCULOSKELETAL: [No joint deformity]. EXTREMITIES: [No peripheral edema. No clubbing, cyanosis.]. NEUROLOGICAL: [Strength rated as 5/5 in b/l lower extremities. Sensation intact. Speech clear when speaking with daughter. Appears alert.]. PSYCHIATRIC: [Mood and affect appear appropriate]. LABORATORY DATA: See below. IMAGING: [Head CT: FINDINGS: Brain: There are moderate periventricular and subcortical lucencies consistent with chronic microvascular ischemic changes. The khan-white differentiation is maintained. No hemorrhage. No edema. Cerebral ventricles: No ventriculomegaly. Bones/joints: Unremarkable. No acute fracture. Paranasal sinuses: Visualized sinuses are unremarkable. No fluid levels. Mastoid air cells: Visualized mastoid air cells are well aerated. Soft tissues: Unremarkable. IMPRESSION: No acute intracranial abnormality. Chronic microvascular ischemic changes. Chest x-ray: FINDINGS: THERE IS NO ACUTE INFILTRATE OR PULMONARY EDEMA. LUNGS ARE CLEAR. HEART IS NOT SIGNIFICANTLY ENLARGED. MEDIASTINAL SILHOUETTE IS UNREMARKABLE, except for mild tortuosity of the thoracic aorta. THE VISUALIZED OSSEOUS STRUCTURES ARE INTACT. IMPRESSION: NO ACUTE PULMONARY DISEASE. Lumbar spine MRI: FINDINGS: Vertebrae: There is no acute compression fracture in the lumbar spine. There is no spondylolisthesis. There is diffuse degenerative facet arthropathy Spinal cord: The conus medullaris is normal appearance at the L1-L2 level. L1-L2: No significant spinal canal stenosis or neural foraminal narrowing. L2-L3: No significant spinal canal stenosis or neural foraminal narrowing. L3-L4: No significant spinal canal stenosis or neural foraminal narrowing. L4-L5: There is a mildly bulging annulus with mild narrowing of the lateral recesses but no definite compression of the exiting L5 nerve roots. The neural foramina are patent. L5-S1: Asymmetrically bulging annulus more prominent to the left of midline with mild spinal canal stenosis without evidence of compression of the exiting S1 nerve roots. There is mild bilateral neural foraminal narrowing without significant compression of the L5 nerve roots. Soft tissues: Unremarkable. IMPRESSION: Diffuse degenerative disc disease most prominent at the L5-S1 level without significant spinal canal stenosis or neural foraminal narrowing. No evidence of disc herniation.] MICROBIOLOGY: Please see below. ASSESSMENT: [This is a 74 year old female who presented to the ED to work up acute onset weakness. On evaluation, patient has been found to have no AMS, pain, or obvious sign of infection that could easily explain her symptoms. Patient does not seem to have had an event such as a fall or recent illness that could onset weakness as well. Patient's labs and imaging are rather unremarkable as well at this time. ]. . PLAN: 1. [LE weakness - MRI showed some mild degenerative changes from L4-S1, but these types of changes do not typically cause the types of symptoms Ms. Gongora is having. - Patient would likely benefit greatly from outpatient pt/ot - Will give gentle ivf overnight - Monitor patient on tele overnight, recheck labs, possibly ua in AM 2. HTN - Patient found to have high BP in ED 191/99 at peak. Suspect patient is somewhat anxious as she knows she is in the hospital yet cannot directly commun icate due to her language barrier. - Hypertensive urgency resolved after 200mg of labetalol and dinner delivery from her daughter - Continue at home labetalol, lisinopril, chlorthalidone 3. Hypothyroidism - continue levothyroxine 4. Hx TIA - Continue clopidogrel, asa 5. Dyslipidemia - continue atorvastatin 6. DVT prophylaxis - lovenox ordered]. Vital Signs Vital Signs Date Time Temp Pulse Resp B/P (MAP) Pulse Ox O2 Delivery O2 Flow Rate FiO2 09/10/20 23:15 66 17 134/60 (84) 99 09/10/20 22:00 Room Air 09/10/20 16:59 97.1 Laboratory Data Labs 24H Laboratory Tests 2 09/10/20 19:36: Immature Granulocyte % (Auto) 0.4, Neutrophils (%) (Auto) 63.9, Lymphocytes (%) (Auto) 22.4L, Monocytes (%) (Auto) 10.2H, Eosinophils (%) (Auto) 2.7, Basophils (%) (Auto) 0.4, Neutrophils # (Auto) 3.6, Lymphocytes # (Auto) 1.3L, Monocytes # (Auto) 0.6, Eosinophils # (Auto) 0.2, Basophils # (Auto) 0.0, Nucleated Red Blood Cells % (auto) 0.0, Activated Partial Thromboplast Time 39.0H, Anion Gap 6L, Glomerular Filtration Rate > 60.0, Calcium Level 9.3, Total Bilirubin 0.4, Direct Bilirubin 0.2, Aspartate Amino Transf (AST/SGOT) 14, Alanine Aminotransferase (ALT/SGPT) 15, Alkaline Phosphatase 63, Total Creatine Kinase 92, Creatine Kinase MB 1.5, Creatine Kinase MB Relative Index 1.63, Troponin I < 0.02, Total Protein 6.8, Albumin 4.0, Albumin/Globulin Ratio 1.4, Thyroid Stimulating Hormone (TSH) 1.610, Free Thyroxine 0.94 09/10/20 22:37: Coronavirus (COVID-19)(PCR) NEGATIVE, Influenza Type A (RT-PCR) NEGATIVE, Influenza Type B (RT-PCR) NEGATIVE, Respiratory Syncytial Virus (PCR) NEGATIVE CBC/BMP Laboratory Tests 09/10/20 19:36 Home Medications Scheduled Aspirin (Aspirin EC) 81 Mg Tablet.dr, 81 MG PO QHS Atorvastatin Calcium (Atorvastatin Calcium) 40 Mg Tablet, 40 MG PO QHS Chlorthalidone (Chlorthalidone) 25 Mg Tablet, 25 MG PO DAILY Cholecalciferol (Vitamin D3) (Vitamin D3) 1,000 Unit Tablet, 1,000 UNITS PO DAILY Clopidogrel Bisulfate (Clopidogrel) 75 Mg Tablet, 75 MG PO DAILY Labetalol HCl (Labetalol HCl) 200 Mg Tablet, 200 MG PO BID Levothyroxine Sodium (Synthroid) 25 Mcg Tablet, 25 MCG PO QAM Lisinopril (Lisinopril) 10 Mg Tablet, 10 MG PO DAILY Metformin HCl (Metformin HCl) 1,000 Mg Tablet, 1,000 MG PO BID Allergies Coded Allergies: Penicillins (Verified Allergy, Unknown, unknown, 11/13/19) A-FIB/CHADSVASC A-FIB History Current/History of A-Fib/PAF?: No SONAL LUO Sep 11, 2020 01:43
[2020-09-11] MEDS: DOCUSATE SODIUM 100MG CAPSULE PO SCH ×2 (02:37→09:00)
[2020-09-11 06:00] VITALS: BP 168/68
[2020-09-11 06:01] LABS: HEMATOCRIT 30.3 % (36.0-47.0); MEAN CORPUSCULAR HEMOGLOBIN 27.9 pg (27.0-33.0); MEAN CORPUSCULAR VOLUME 84.6 fl (80.0-96.0); PLATELET COUNT, AUTOMATED 168 10^3/uL (150-450); RED BLOOD COUNT 3.58 10^6/uL (4.00-5.40); WHITE BLOOD COUNT 6.1 10^3/uL (4.0-10.0)
[2020-09-11 06:22] LABS: BLOOD UREA NITROGEN 14 MG/DL (7-18); CARBON DIOXIDE LEVEL 32 MEQ/L (21-32); CHLORIDE LEVEL 95 MEQ/L (98-107); CREATININE FOR GFR 0.45 MG/DL (0.55-1.30); GLOMERULAR FILTRATION RATE > 60.0 (>39); GLUCOSE, FASTING 99 MG/DL (70-100); POTASSIUM SERUM 3.2 MEQ/L (3.5-5.1); SODIUM LEVEL 132 MEQ/L (136-145)
[2020-09-11] MEDS ORDERED: VITAMIN D 1,000 INTERNATIONAL UNITS TABLET PO SCH (09:00)
[2020-09-11] MEDS ORDERED: ENOXAPARIN 40MG/0.4ML SYRINGE (J1650 PER 10MG) SC SCH (09:00)
[2020-09-11] MEDS ORDERED: CHLORTHALIDONE 25 MG TAB PO SCH (09:00)
[2020-09-11] MEDS ORDERED: LABETALOL 200 MG TAB PO SCH (09:00)
[2020-09-11] MEDS ORDERED: LEVOTHYROXINE 25MCG TABLET (0.025MG) PO SCH (09:00)
[2020-09-11] MEDS ORDERED: CLOPIDOGREL 75 MG TAB PO SCH (09:00)
[2020-09-11 09:15] VITALS: BP 139/60
[2020-09-11 09:22] LABS: FERRITIN 37 NG/ML (8-252); IRON (FE) 47 UG/DL (50-170); PERCENT SATURATION 15.4 % (13.2-45.0); TOTAL IRON BINDING CAPACITY 306 UG/DL (250-450)
[2020-09-11 09:56] LABS: HEMOGLOBIN A1c 5.9 %
[2020-09-11 11:14] LABS: VITAMIN B12 LEVEL 217 PG/ML (247-911)
[2020-09-11 11:15] LABS: FOLATE 20.6 NG/ML (>5.4)
[2020-09-11] MEDS ORDERED: CYANOCOBALAMIN 1,000MCG/ML VIAL (J3420) IM SCH (12:30)
[2020-09-11] MEDS ORDERED: POTASSIUM CHLORIDE 10 MEQ SR TABLET PO ONE (12:55)
[2020-09-11 14:00] VITALS: BP 135/59
[2020-09-11] MEDS ORDERED: IRON SUCROSE 300 MG in NS 250 ML IV ONE (15:00)
[2020-09-11] MEDS ORDERED: VITA-172 PO (16:00)
[2020-09-11] MEDS ORDERED: FERR325T3 PO (16:00)
[2020-09-11] MEDS ORDERED: CYAN1000VL IM (16:00)
[2020-09-11] MEDS ORDERED: ATOR40TA75 PO (16:00)
--- NOTE | 2020-09-11 17:56 | ECGEPIP ---
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
--- NOTE | 2020-09-12 16:01 | IPNPDOC ---
Subjective Date Seen The patient was seen on 09/11/20. Subjective Chief Complaint/HPI Feels better but still reports that her legs are shaky. labs showed that her A1c is 5.9. It also showed that her vit b12 is 219 and she has anemia with iron def as TSAT is < 30% with low normal ferritin. She was given1 dose of im cyanocobalamin and IV venofer 300 mg. Her metformin was stopped. She was also noted to be mildly hyponatremic and had mild hypokalemia. Objective Physical Examination General Exam: Positive: Alert, Cooperative, No Acute Distress Eye Exam: Positive: PERRLA, Conjunctiva & lids normal, EOMI; Negative: Sclera icteric ENT Exam: Positive: Atraumatic, Mucous membr. moist/pink, Pharynx Normal Neck Exam: Positive: Supple; Negative: JVD, thyromegaly Chest Exam: Positive: Clear to auscultation, Normal air movement Heart Exam: Positive: Rate Normal, Regular Rhythm, Normal S1, Normal S2; Negative: Murmurs, Rubs Abdomen Exam: Positive: Normal bowel sounds, Soft; Negative: Tenderness, Hepatospenomegaly Extremity Exam: Negative: Clubbing, Cyanosis, Edema Skin Exam: Positive: Nl turgor and temperature; Negative: Rash, Breakdown Assessment /Plan Assessment This is a 74 year old female with a pmh of htn, niddm, and hypothyroidism who presented to the ED complaining of increased lower extremity weakness for 1 week Important of note, patient does not speak kinyarwanda. Daughter acts as rn hospital. Daughter states that her mother is normally very mobile at baseline, but the family has noticed recently that she has been unable to get around very well over the past week. Daughter states that it has gotten to the point where she has to walk with assistance device where she did not need to before. Daughter states that her mother seems to be having a hard time standing on her own power. Denies falls. Daughter did report that her appetite has gone done and les is now not able to eat as much as before so her weight has also gone down. During hospitalization she was found to have Vit B12 deficciency, Anemia with iron deficiency and blood sugars int eh low normal range without any medications. Her A1c was 5.9. Gait instability and weakness of both legs CT head negative MRI lumber spine no acute abnormality. I feel her symptoms are multifactorial due to advancing age with debility and sarcopenia along with chronic anemia and likely low blood sugars at home. She may have some peripheral neuropathy from Vit B12 deficiency and DM. DM A1c of 5.9 Her metformin has been stopped. Anemia due to iron deficiency and vit b12 deficiency given venofer 300 mg started on oral iron and started on Vit B12 weekly injections. She would benefit from a colonoscopy and possibly an EGD to evaluate for anemia Hyponatremia dn hypokalemia due to HCTZ this has been stopped. HLD she has lost significant weight about 14 lbs in the last 9 months. will reduce atorvastatin dose. Plan : Dc home with home services. Follow up with PMD in 2 to 3 weeks. Plan/VTE VTE Prophylaxis Ordered?: No VS, I&O, 24H, Fishbone Vital Signs/I&O Vital Signs Date Time Temp Pulse Resp B/P (MAP) Pulse Ox O2 Delivery O2 Flow Rate FiO2 09/11/20 14:00 98.2 53 20 135/59 (84) 100 Room Air I&O- Last 24 Hours up to 6 AM 09/12/20 07:00 Intake Total 720 ml Output Total 0 ml Balance 720 ml SHAQ ARNOLD MD Sep 12, 2020 16:01
== END 2020-09-11 18:19 | disposition home or self-care (01) ==
LOC: M ED 16:58 → M ED INP 16:59 → ENRESERV 09-11 00:58 → M MSPAV 09-11 01:33
PROVIDERS: ADMIT Family Medicine; ATTEND Internal Medicine Nephrology
DX: R53.1 Weakness (principal); M51.37 Other intervertebral disc degeneration, lumbosacral region; R26.81 Unsteadiness on feet; I10 Essential (primary) hypertension; E78.5 Hyperlipidemia, unspecified; E03.9 Hypothyroidism, unspecified; Z86.73 Personal history of transient ischemic attack (TIA), and cerebral infarction without residual deficits; E11.9 Type 2 diabetes mellitus without complications; D50.9 Iron deficiency anemia, unspecified; E53.8 Deficiency of other specified B group vitamins; E87.1 Hypo-osmolality and hyponatremia; E87.6 Hypokalemia; Z79.899 Other long term (current) drug therapy; Z79.82 Long term (current) use of aspirin; Z79.02 Long term (current) use of antithrombotics/antiplatelets; Z79.84 Long term (current) use of oral hypoglycemic drugs; Z88.0 Allergy status to penicillin
CPT/HCPCS: 36415; 70450; 71045; 72148; 80048; 80076; 82550; 82553; 82607; 82728; 82746; 83036; 83550; 84439; 84443; 85025; 85027; 85730; 86850; 86900; 86901; 87631; 93005; 93041; 94760; 96361; 96372; 96374; 97161; 99285; J1650; J1756; J3420

== ENCOUNTER → 2020-10-15 | Outpatient (REF) | payer OTHER ==
[~2020-10-15] MED LIST changes: +CYAN1000VL IM; +FERR325T3 PO; +VITA-172 PO
[2020-10-15 19:22] LABS: ALBUMIN 3.9 GM/DL (3.2-5.2); ALT/SGPT 14 U/L (12-78); BILIRUBIN,TOTAL 0.5 MG/DL (0.2-1.0); BLOOD UREA NITROGEN 14 MG/DL (7-18); CALCIUM LEVEL 9.1 MG/DL (8.8-10.2); CARBON DIOXIDE LEVEL 29 MEQ/L (21-32); CHLORIDE LEVEL 103 MEQ/L (98-107); CHOLESTEROL LEVEL 113 MG/DL (<200); CHOLESTEROL RISK RATIO 1.765 (<5); CREATININE FOR GFR 0.46 MG/DL (0.55-1.30); GLOMERULAR FILTRATION RATE > 60.0 (>39); GLUCOSE, FASTING 95 MG/DL (70-100); HDL CHOLESTEROL 64 MG/DL (>40); LDL CHOLESTEROL 37 MG/DL (<100); NON-HDL-C 49 MG/DL; SODIUM LEVEL 137 MEQ/L (136-145); TOTAL PROTEIN 6.4 GM/DL (6.4-8.2); TRIGLYCERIDES LEVEL 61 MG/DL (<150); VITAMIN B12 LEVEL > 2000 PG/ML (247-911)
== END ==
LOC: M SFHCPLAZ 14:47
PROVIDERS: ATTEND Nurse Practitioner Adult Health
DX: E11.9 Type 2 diabetes mellitus without complications (principal); E78.2 Mixed hyperlipidemia; E53.8 Deficiency of other specified B group vitamins; E03.9 Hypothyroidism, unspecified